=== PATIENT | female | born 1955 | race Caucasian/White ===

== ENCOUNTER 2020-05-12 16:03 | Outpatient (REF) | payer OTHER, SELFPAY | END 2020-05-12 16:04 | disposition home or self-care (01) | LOC: HO.LAB 16:03 | PROVIDERS: Visit Provider Internal Medicine | DX: Z20.828 Contact with and (suspected) exposure to other viral communicable diseases (principal) | CPT/HCPCS: 87635 ==

== ENCOUNTER 2021-09-02 13:31 | Outpatient (REF) | payer OTHER, SELFPAY ==
--- NOTE | ~2021-09-02 | MM_ITS ---
EXAMINATION: MM SCREENING DIGITAL BREAST TOMOSYNTHESIS, BILATERAL CLINICAL INFORMATION: Screening. Asymptomatic. The lifetime risk of breast cancer based on the Tyrer-Cuzick Model is 7%. COMPARISON: Mammography: 04/25/2018, 04/05/2017, 02/14/2016 TECHNIQUE: Digital breast tomosynthesis is performed in both the craniocaudal and mediolateral oblique views along with computer-aided detection (CAD). Synthesized 2D images are generated from the tomosynthesis. FINDINGS: There are scattered areas of fibroglandular density (ACR BI-RADS breast composition Category b). Parenchymal pattern is similar to prior studies. There is no significant breast mass or architectural abnormality or abnormal calcifications. There are coarse calcifications again seen central and outer left breast similar to prior study. The axilla are unremarkable. Left MLO view has dermal lesions overlying the lower inframammary fold approximately 4 x 6 mm in size. This may be best correlated with clinical exam. Navigator to call report. MM/MM tomosynthesis screening BI IMPRESSION: 1. No mammographic evidence of malignancy. 2. Dermal lesion left inframammary fold. ASSESSMENT: BI-RADS 2: Benign RECOMMENDATION: 1. Dermal lesion left inframammary fold may be correlated with clinical exam. 2. Otherwise, routine annual mammography screening. This patient's information was entered into a reminder system with a target due date for their next mammogram.
== END 2021-09-02 13:32 | disposition home or self-care (01) ==
LOC: HO.MAMMO 13:31
PROVIDERS: PCP Family Medicine; Visit Provider Family Medicine
DX: Z12.31 Encounter for screening mammogram for malignant neoplasm of breast (principal)
CPT/HCPCS: 77063; 77067

== ENCOUNTER 2025-01-27 08:09 | Outpatient (REF) | payer MEDICARE, SELFPAY ==
--- OUTSIDE RECORDS SUMMARY | 2024-05-19 05:40 | XMS_ITS ---
Author Organization [facility] Address [address] [place] [address] Care Team Providers Care Promotional Representative Name Role Phone Rolando Flores [phone] Encounters Encounter Location Date Provider Diagnosis [facility] - [facility] [address] [place] [address] 05/19/2024 Rolando Flores Plan Of Treatment No Information Progress Notes * ELI OLIVEROB: 6 (69 yo F)Acc No.[id number]:05/19/2024 Progress Notes Patient: SANCHEZ ARRIOLA Provider: Rocco Flores MD :[id number] A ge:69 Y S ex:Female Date:05/19/2024 Address:[facility] [address] [id number] Subjective: * Chief Complaints: * * Medical History: Objective: * Vitals: Assessment: Plan: * Treatment: * * Electronic signature of James Flores MD on 01/27/2025 at 07:13 AM CDT Sign off status: Pending * Provider: Rocco Flores MD Date: 07/19/2023 Generated for Lindy mayfield/Brandt/eTromanasmwendy on: 0 01/27/2025 07:13 AM CDT
--- OUTSIDE RECORDS SUMMARY | 2025-01-22 08:29 | XMS_ITS | Continuity of Care Document ---
Author Organization [facility] Address [address] [place] [address] Phone Care Team Providers Care Video Production Specialist Name Role Phone No Information Unavailable Unavailable Allergies, Adverse Reactions, Alerts Substance Reaction Status Criticality No Known Allergies Active No Inform ation Medications Medication Instructions Dosage Effective Dates (start - stop) Status Comments fluticasone propionate 50 mcg/actuation nasal spray,suspension inhale 2 spray by intranasal route every day in each nostril 100 MCG - Active Medrol (Buck) 4 mg tablets in a dose pack take by oral route as directed per package instructions 0.00 - Active Voltaren Arthritis Pain 1 % topical gel apply 2 gram by topical route 4 times every day to the affected area(s) 2.00 gram - Active [place] 230 mg-70 mg topical patch Apply to affected area as directed - Active loratadine 10 mg tablet take 1 tablet by oral route every day 10 MG - Active ibuprofen 800 mg tablet take 1 tablet by oral route 3 times every day with food as needed 800 MG - Active Procedures Procedure Date URINALYSIS NONAUTO W/O SCOPE BODY MASS INDEX DOCD [facility] MED/CURRENT MED MERGE Office/outpatient visit,est, mod 2022 Office/outpatient visit,est, low 2022 [facility] MED/CURRENT MED MERGE Office/outpatient visit,est, mod 2022 [facility] MED/CURRENT MED MERGE Preventive checkup, new,65+ yrs 023 Advance Directives Directive Yes / No Effective Date File Name No Information Encounters Encounter Description Practice Location Reason(s) For Visit Diagnoses Date Provider Providers Copied on Encounter [facility], [address] [place] [address], [id number], tel:[phone] No Information 5 No Information [facility], [address] [place] [address], [id number], [place] tel:[phone] [facility] No Information 3 [facility]. [address] [place] [address], [id number], . tel:[phone] Office/outpa tient visit,[facility], [address] [place] [address], [id number], [place] tel:[phone] [facility] Follow Up of hyperlipidemi a (chief complaint)frandy k pain (chief complaint)All ergies (chief complaint) Body mass index [BMI] 28.0-28.9, adultBack painOther muscle spasmMixed hyperlipidemi aOther seasonal allergic rhinitisOther spondylosis, lumbar region 3 [facility]. [address] [place] [address], [id number], . tel:[phone] Office/outpa tient visit,[facility], [address] [place] [address], [id number], [place] tel:[phone] [facility] back pain (chief complaint) Body mass index [BMI] 28.0-28.9, adultBack pain 3 No Information Office/outpa tient visit,[facility], [address] [place] [address], [id number], [place] tel:[phone] [facility] hyperlipidemi a (chief complaint)col onoscopy (chief complaint) Mixed hyperlipidemi aEncounter for screening for Ca of colonOth abn and inconclusive findings on dx imaging of breast 3 [facility]. [address] [place] [address], [id number], [place]. tel:[phone] Preventive checkup, new,65+ yrs [facility], [address] [place] [address], [id number], [place] tel:[phone] [facility] Established care (chief complaint)Her pes (chief complaint)Art hralgias (chief complaint)All ergies (chief complaint)wwc (chief complaint) Allergic rhinitisHerpe sviral infection, unspecifiedEn counter for screening for diabetes mellitusEncou nter for screening for hyperlipidemi aEncounter for routine adult physical exam with abnormal findingEncoun ter for screening for other suspected endocrine disorderEncou nter for screening mammogram for malignant neoplasm of breastArthrit isGlaucomaEle vated blood-pressur e reading w/o diagnosis of HTNOth abn and inconclusive findings on dx imaging of breast 3 [facility]. [address] [place] [address], [id number], [place]. tel:[phone] Family History Family Member Type Diagnosis Age At Onset Mother Problem Hypertension Father Problem Hypertension Payers Payer name Insurance type Covered libertarian ID Authoriza tion(s) No Information Social History Type Description Quantity Date Captured Comments Sex Female Smoking Status No Information Sexual Orientation Straight or heterosexual Gender Identity Female Chief Complaint And Reason For Visit No Information Reason For Referral Reason For Referral No Information Plan Of Treatment Date Type Action Status Goal FIT. Due on due Goal Unhealthy drug u se screening. Due on due Goal Hepatitis C scre ening. Due on due Goal Pneumococcal vac cine. Due on due Goal Breast MRI. Due on due Goal Occult Blood, [place]. Due on due Goal Zoster vaccine ( 1st). Due on due Goal Breast Exam. Due on due Goal CT-Colonography. Due on due Goal DEXA scan. Due on due Goal Depression scree minoo. Due on due Goal Colonoscopy. Due on due Goal Influenza vaccin e. Due on due Goal FIT-DNA. Due on due Goal Lipid panel. Due on due Goal Dental exam. Due on due Goal Sigmoidoscopy. Due on due Goal Tdap. Due on due Goal Lipid Panel w/No n-HDL, Chol/HDL Ratio Calc. Due on due Goal Td vaccine. Due on due Goal FIT. Due on due Goal Influenza vaccin e. Due on due Goal Lipid Panel w/No n-HDL, Chol/HDL Ratio Calc. Due on due Goal Breast Exam. Due on due Goal Colonoscopy. Due on due Goal Dental exam. Due on due Goal Sigmoidoscopy. Due on due Goal Hepatitis C scre ening. Due on due Goal Occult Blood, [place], [place]. Due on due Goal Pneumococcal vac cine. Due on due Goal Tdap. Due on due Goal Depression scree minoo. Due on due Goal DEXA scan. Due on due Goal FIT-DNA. Due on due Goal Td vaccine. Due on due Goal Zoster vaccine ( 1st). Due on due Goal Breast MRI. Due on due Goal Lipid panel. Due on due Goal Unhealthy drug u se screening. Due on due Goal CT-Colonography. Due on due Goal Lifestyle educat ion regarding diet completed Goal CT-Colonography. Due on due Goal Lipid Panel w/No n-HDL, Chol/HDL Ratio Calc. Due on due Goal Td vaccine. Due on due Goal Dental exam. Due on due Goal Colonoscopy. Due on due Goal Unhealthy drug u se screening. Due on due Goal Tdap. Due on due Goal Zoster vaccine ( ). Due on due Goal FIT. Due on due Goal FIT-DNA. Due on due Goal Occult Blood, [place], [place]. Due on due Goal Breast MRI. Due on due Goal Breast Exam. Due on due Goal Pneumococcal vac cine. Due on due Goal Lipid panel. Due on due Goal DEXA scan. Due on due Goal Hepatitis C scre ening. Due on due Goal Sigmoidoscopy. Due on due Goal Influenza vaccin e. Due on due Goal Depression scree minoo. Due on due Goal Depression scree minoo. Due on due Goal Dental exam. Due on due Goal Breast Exam. Due on due Goal Unhealthy drug u se screening. Due on due Goal Occult Blood, [place], [place]. Due on due Goal Sigmoidoscopy. Due on due Goal Breast MRI. Due on due Goal Influenza vaccin e. Due on due Goal Hepatitis C scre ening. Due on due Goal Lipid panel. Due on due Goal Pneumococcal vac cine. Due on due Goal Lipid Panel w/No n-HDL, Chol/HDL Ratio Calc. Due on due Goal CT-Colonography. Due on due Goal Zoster vaccine ( 1st). Due on due Goal FIT. Due on due Goal Td vaccine. Due on due Goal Colonoscopy. Due on due Goal DEXA scan. Due on due Goal Tdap. Due on due Goal FIT-DNA. Due on due Referral Ordered: Gastroenterology (related to Encounter for screening for Ca of colon) ordered Referral Ordered: Referrals: Gastroenterology. Evaluate and treat ordered Referral Ordered: Referrals: Ophthalmology. Evaluate and treat Appointment date/timeframe: 01/10/2023 ordered Future Order: Radiology Order MG Screening Mammogram CAD BILATERAL ([id number]), Sent on: Sent Future Order: Radiology Order MG Diagnostic Mammogram CAD BILATERAL ([id number]), Sent on: Sent Future Order: Radiology Order MG Diagnostic Mammogram CAD BILATERAL ([id number]), Collected on: , Sent on: Sent Nutrition Recommendation Nutrition therap y completed History Of Present Illness Encounter Date Complaint History Of Prese nt Illness Follow Up of hyperlipidemia Risk factors include age over 50. Pertinent negatives include chest pain, claudication, constant hunger, constipation, diaphoresis, diarrhea, dizziness, dysesthesias, dyspnea, excessive thirst, foot ulcer, frequent infections, heartburn, hematuria, hypoglycemic episodes, impotence/erectile dysfunction, increased fatigue, joint pain, myalgia, nausea, nocturia, palpitations, polydipsia, polyuria (Endocrine), rash, slow healing, transient weakness, vision loss, vomiting, weight gain, weight loss. back pain Severity level i s moderate. The problem is fluctuating. It occurs persistently. Location of pain is lower back. Pain is radiated to the back. The client describes the pain as an ache, dull, sharp and stabbing. Context: no injury. Symptoms are aggravated by ascending stairs, bending, descending stairs, extension, flexion, lying/rest, running, standing, twisting and walking.The client denies relieving factors. Allergies The client prese nts with earache, itchy ears, itchy eyes, post nasal drainage, sneezing and watery eyes. Symptoms are constant, mild and unchanged. The symptoms are felt to be related to season change. The allergic symptoms are worsened by allergens and season change. Denies relieving factors. The client is also experiencing ear pain, headache, nasal congestion and nasal drainage. The client denies chest tightness, coryza, cough, dizziness, globus sensation, hoarseness, nausea, pharyngitis, post nasal drainage, reddened eyes, reflux, sinus infections, sinus pain, sneezing, tearing and urticaria. back pain Onset: 2 days ag o. Severity level is 7. The problem is worsening. It occurs persistently. Location of pain is lower back. Pain is radiated to the back. The client describes the pain as an ache and localized. Context: bending over, no injury, pulling and twisting movement. Symptoms are aggravated by bending. Symptoms are relieved by pain meds/drugs. colonoscopy dueno bowel vizcaino gesno fam hx of colon cancer hyperlipidemia Risk factors inc lude age over 50. Pertinent negatives include chest pain, claudication, constant hunger, constipation, diaphoresis, diarrhea, dizziness, dysesthesias, dyspnea, excessive thirst, foot ulcer, frequent infections, heartburn, hematuria, hypoglycemic episodes, impotence/erectile dysfunction, increased fatigue, joint pain, myalgia, nausea, nocturia, palpitations, polydipsia, polyuria (Endocrine), rash, slow healing, transient weakness, vision loss, vomiting, weight gain, weight loss. Additional information: not due for labs yet - has not started any lifestyle changes or added fish oil to diet. [facility] Herpes has history of h erpes. Currently on acyclovir taking it as needed. last flare up was 3 yr ago. Established care Current health status: good healthy. Medical history: herpes, Arthritis , GERD, migraine, Carpal tunnel - Lt wrist, glaucomaPreventive : Last PAP 3 yr ago. Mammogram abnormal in 2021-need repeat mammogram. colonoscopy - normal-does not remember whenSurgery ; Hysterectomy 20yr ago. has ovaries Lifestyle: healthy - nonsmokerAllergies : seasonalSees dentist routinelyFamily medical history: reviewPrescription medications: omeprazole, acyclovir, loratidineOTC medications: ExedrinNutritional supplements: noneimmunization : shingles and pfizer for covidConcerns: none Allergies The client prese nts with sneezing and watery eyes. Symptoms are constant, mild and improving. The symptoms are felt to be related to season change. The allergic symptoms are worsened by season change. The client is also experiencing post nasal drainage. The client denies cough, ear pain, headache, nasal drainage and nausea. Arthralgias Severity level i s mild. It occurs constantly and is fluctuating. Location: bilateral hand. The pain is aching. Context: there is no injury. The pain is relieved by OTC medicines: ibuprofen and rest. Associated symptoms include joint tenderness. Pertinent negatives include bruising, crepitus, decreased mobility, difficulty initiating sleep, joint instability, limping, locking, nocturnal awakening, nocturnal pain, numbness, popping, spasms, swelling, tingling in the arms, tingling in the legs and weakness. Functional Status Date Functional Assessmen t No Information Instructions Date Instruction Additional Infor steve referral to ortho. Related to Ot her spondylosis, lumbar region 1. Discussed muscle spasm etiology and treatment plan.2. Patient to apply warm moist pad to affected area TID prn muscle spasms.3. Take muscle relaxants as directed.4. Recommend gentle stretching exercises, warm oil massage to affected area, lumbar support.5. F/u in 1 week or sooner if symptoms worsen or do not improve. Related to Other muscle spasm 1. Discussed seasona l allergies etiology and treatment plan.2. Patient to take allergy medication as directed.3. Discussed lessoning the exposure to the allergens that cause symptoms. 4. Refills addressed.5. RTC if symptoms worsen or do not improve. Related to Other seasonal allergic rhinitis 1. Discussed hyperli pidemia etiology and treatment plan.2. Patient to continue with current treatment plan.3. No medication changes - refills sent to pharmacy.4. Recommended low carbohydrate, high fiber, low saturated fat diet. 5. Recommended optimal lifestyle habits that include exercise daily at least 150 mins weekly and weight loss.6. Labs ordered - pending results.7. Handout offered to patient. Patient verbalized understanding. 8. F/u in 3 months. Related to Mixed hyperlipidemia 1. Discussed back pa in possible causes and treatment plan.2. Patient to apply warm moist heat to affected area on back, warm oil massage to back area, gentle stretching exercises.3. Recommend lumbar support and limited activities that may exacerbate pain.4. Patient to take medication as directed.5. Patient verbalized understanding.6. F/u in 1 week or sooner if symptoms worsen or do not improve. Related to Back pain Safeguard your back while lifting: Bend at your knees, not at your lower back. Pivot your feet and hips, rather than twisting your lower back. Hold the object close to your chest while straightening your spineSpine sparing principles: It is advisable to stand upright for a few minutes and allow the spinal tissues to recover and re-shape after prolonged stooping or bending.Protect your disc after waking: The pressure within your discs rises up to 240% when you sleep at night (for a minimum of 7 hours).6 At this time, your discs are fully hydrated and are typically at a higher risk of herniation when subject to bending or lifting forces. Maintaining a straight back for an hour or two after waking allows your discs to regain their normal pressure and withstand loads more effectively. Related to Back pain Giving encouragement to exercise Related to Body mass index [BMI] 28.0-28.9, adult Lifestyle education regarding di et Related to Body mass index [BMI] 28.0-28.9, adult Discussed with betsey fink Colonoscopy noraWifadi refer to gastro for to schedule colonoscopy. Related to Encounter for screening for Ca of colon repeat mammogram in 2022 - Related to Oth abn and inconclusive findings on dx imaging of breast 1. Discussed hyperli pidemia etiology and treatment plan.2. Patient to continue with current treatment plan.3. No medication changes - refills sent to pharmacy.4. Recommended low carbohydrate, high fiber, low saturated fat diet. 5. Recommended optimal lifestyle habits that include exercise daily at least 150 mins weekly and weight loss.6. Labs due next visit. 7. Handout offered to patient. Patient verbalized understanding. 8. F/u in 3 months. Related to Mixed hyperlipidemia mammogram ordered Related to Enc ounter for screening mammogram for malignant neoplasm of breast labs pending Related to Encou nter for screening for other suspected endocrine disorder labs pending Related to Encou nter for screening for hyperlipidemia referral needed. Related to Glau coma need medical records. Related to Oth abn and inconclusive findings on dx imaging of breast 1. 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 Discussed with patient Herpes type 1 signs and symptoms: cold sores with tingling, itching, blisters, oozing and crusting.2. Discussed cause: viral strain of HSV. 3. Discussed contagious factors/risk factors, complications, prevention. 4. Discussed treatment plan to help speed up healing and prophylactic treatment.5. Reassurance given to patient.6. No treatment needed at this time.7. F/u prn. Related to Herpesviral infection, unspecified labs pending Related to Encou nter for screening for diabetes mellitus 1. Discussed etiolog y and treatment plan.2. Discussed how the symptoms can be usually managed, although the damage to joints can't be reversed.3. Recommend staying active, maintaining a healthy weight and some treatments to slow progression to help improve pain and joint function. 4. Recommend medications for pain (Tylenol, NSAIDS), Cymbalta, Physical Therapy.5. Discussed with patient that if conservative treatments don't help, may want to consider, cortisone injections, lubrication injections, joint replacement, realigning bones...etc. 6. Discussed alternative therapies: juany chi/yoga, heat/cold, capsaicin topical, braces, assistive devices, TENS units.7. Discussed complementary treatments: acupuncture, glucosamine/chondroitin, omega-3 fatty acids, avocado-soybean unsaponifiables. 8. Patient to f/u in 3 months. Related to Arthritis 1. Discussed with johnna rodriguez preventive - screenings/counseling.2. Reviewed immunizations: Recommend Influenza vaccine.3. Depression screen: negative.4. Blood pressure: normal - today high in office. 5. Smoking/Tobacco Assessment: negative. 6. BMI: discussed.7. STI risk discussed. 8. Mammogram recommended ever 1-2 years. DUE: Related to Encounter for routine adult physical exam with abnormal finding 1. Discussed HTN rody ology, normal parameters. 2. Discussed elevated BP causes which include PAIN, anxiety stress, caffeine consumption (BC powder)...etc.3. Handout given of BP Log. Patient to take BP daily, same time, same arm x 2 weeks, bring to next appt.4. Recommend low sodium diet.5. Labs ordered today - pending results6. Discussed question and concerns regarding BP. 7. F/u in 3 months.8. RTC if symptoms worsen Related to Elevated blood-pressure reading w/o diagnosis of HTN 1. Discussed seasona l allergies etiology and treatment plan.2. Patient to continue with current OTC allergy medication daily - claririn 5mg daily3. Recommend nasal saline rinses daily.4. Recommend avoiding allergens as best as possible. 5. RTC if symptoms worsen or do not improve.6. F/u prn Related to Allergic rhinitis Assessments Type Assessment Date No Information Patient Care Teams Name Effective Dates (start - stop) Status Members No Information
--- NOTE | ~2025-01-27 | XR_ITS ---
EXAMINATION: XR KNEE, LEFT CLINICAL INFORMATION: pain COMPARISON: None available. TECHNIQUE: Four views of the left knee. FINDINGS: Joint spaces are preserved. There is no joint effusion. There is a small osteophyte involving the lateral patella margin. XR/XR knee LT 4V IMPRESSION: Small patellar osteophyte is consistent with very minimal osteoarthritis. Electronically signed by: Matty Zacarias MD 01/27/2025 11:43 AM EDT
--- OUTSIDE RECORDS SUMMARY | 2025-01-27 08:14 | XMS_ITS | Encounter Summary ---
Author Organization [facility] Address [address] [place] [address] Care Team Providers Care Pressurised Container Filler Name Role Phone Susan Wayne MD Primary Care Provider [phone] Susan Wayne MD Primary Care Provider [phone] Encounter Details Date Type Department Care Team (Late Contact Info) Description 08/22/2023 Orders Only [facility] [address] [place] [address] [phone] Susan Wayne MD [address] [place] [address] [phone] Social History Tobacco Use Types Packs/Day Years Used Date Smoking Tobacco: Never Smokeless Tobacco: Never Tobacco Cessation:Counseling Given: Not Answered Alcohol Use Standard Drinks/Week Comments Never 0 (1 standard drink = 0.6 oz pur e alcohol) Comments Unknown Sex and Gender Information Value Date Recorded Sex Assigned at Female 05/15/2022 10:14 AM EDT Legal Sex Female 10:14 AM EDT Gender Identity Female 05/15/2022 10:14 AM EDT Sexual Orientation Choose not to disclose 2021 10:14 AM EDT documented as of this encounter Plan of Treatment Upcoming Encounters Date Type Department Care Team (Late Contact Info) Description 04/15/2025 10:30 AM EDT Office Visit [facility] [address] [place] [address] [phone] Susan Wayne MD [address] [place] [address] [phone] documented as of this encounter Visit Diagnoses Not on filedocumented in this encounter Care Teams Pressurised Container Filler Relationship Specialty Start Date End Date Susan Wayne MD [address] [place] [id number] PCP - General Family Medicine 07/16/18 04/13/24 Susan Wayne MD [address] [place] [id number] PCP - General Family Medicine 01/26/25 documented as of this encounter
--- OUTSIDE RECORDS SUMMARY | 2025-01-27 08:14 | XMS_ITS | Patient Health Record ---
Author Organization [facility] Address [address] [place] [address] Care Team Providers Care Field Supervisor Name Role Phone Susan Wayne MD Primary Care Provider Sondra Corky Meier Jr Unavailable Reason For Referral No Information Medications Medication SIG (Take, Route, Fr equency, Duration) Notes Start Date End Date Status MoviPrep 100 GM as directed before c olonoscopy Orally for 1 dose 09/20/2012 07/16/2024 Active Calcium Active Problems Problem Type SNOMED Code ICD Code Onset Dates Problem Status W/U Status Risk Notes Problem Irritable bowel syndrome (57643558) Irritable bowel syndrome (564.1) Active confirmed Problem Colon cancer screening (959786126) Colon cancer screening (V76.51) Active confirmed Plan Of Treatment Future Test Test Name Order Date COLONOSCOPY 09/20/2012 Insurance Providers Payer Name Payer Address Payer Phone Subscriber Number Group Number Insured Name Patient Relationship to Insured Coverage Start Date Coverage End Date [facility] [address] [place] [phone] [id number] SANCHEZ OLIVER Self - patient is the insured Medical (General) History Medical History History ICD Code Denies [place],DM,CVA,Lung disease,renal dise ase glaucoma varicose veins in lower extremity allergic rhinitis eczematous dermatitis Surgical History Surgery Date(Month/Year) hysterectomy ? gallbladder hand surgery
[2025-01-27 11:15] LABS: MANUAL DIFF FLAG NO
[2025-01-27 11:25] LABS: Hematocrit 42.6 % (37.0-47.0); Hemoglobin 14.0 g/dl (12.0-16.0); Imm Gran Abs Auto 0.04 X10*3/uL (0.00-0.03); Imm Gran Pct Auto 0.4 % (0.0-0.4); Lymphocytes Absolute Auto 4.3 X10*3/uL (1.2-4.9); Mean Corpuscular HGB Conc 32.9 g/dl (31.0-35.0); Mean Corpuscular Hemoglobin 29.5 pg (27.0-33.0); Mean Corpuscular Volume 89.7 fL (80.0-98.0); NRBC Abs Auto 0.000 X10*3/uL (0.0-0.012); NRBC Pct Auto 0.0 /100WBC (0.0-0.2); Platelet Count 283 X10*3/uL (160-400); Red Blood Count 4.75 X10*6/uL (4.20-5.50); White Blood Count 10.0 X10*3/uL (4.8-10.8)
[2025-01-27 12:16] LABS: Alanine Aminotransferase 46 U/L (0-31); Albumin Level 4.5 g/dL (3.5-5.0); Alkaline Phosphatase 71 U/L (39-117); Anion Gap 13 (12-20); Aspartate Amino Transferase 31 U/L (5-31); Blood Urea Nitrogen 21 mg/dL (9-16); Calcium 9.4 mg/dL (8.4-10.2); Carbon Dioxide 29 mmol/L (22-29); Chloride 108 mmol/L (96-108); Cholesterol 202 mg/dL (<200); Estimated Glomerular Filt Rate > 60; HDL Cholesterol 47 mg/dL (>40); Potassium 4.8 mmol/L (3.3-5.1); Sodium 145 mmol/L (135-145); Total Protein 6.9 g/dL (6.5-8.0); Triglycerides 147 mg/dL (<150)
== END 2025-01-27 08:10 | disposition home or self-care (01) ==
LOC: HO.HHCL 08:09
PROVIDERS: PCP Family Medicine; Visit Provider Family Medicine
DX: M25.762 Osteophyte, left knee (principal); E78.2 Mixed hyperlipidemia; Z13.1 Encounter for screening for diabetes mellitus; E55.9 Vitamin D deficiency, unspecified; G89.29 Other chronic pain
CPT/HCPCS: 36415; 73564; 80048; 80061; 80076; 82306; 85025

== ENCOUNTER → 2025-01-27 10:44 | Outpatient (BNV) | payer MEDICARE, SELFPAY | PROVIDERS: PCP Family Medicine; Visit Provider Radiology Diagnostic Radiology | DX: M17.12 Unilateral primary osteoarthritis, left knee (principal) | CPT/HCPCS: 73564 ==

== ENCOUNTER 2025-03-11 16:07 | Outpatient (RCR) | payer MEDICARE, SELFPAY | END 2025-03-31 10:25 | disposition home or self-care (01) | LOC: HO.PT 16:07 | PROVIDERS: PCP Family Medicine; Visit Provider Internal Medicine | DX: M17.12 Unilateral primary osteoarthritis, left knee (principal) | CPT/HCPCS: 97110; 97161; 97530 ==

== ENCOUNTER 2025-04-09 08:52 | Outpatient (REF) | payer MEDICARE, SELFPAY ==
--- OUTSIDE RECORDS SUMMARY | 2025-01-22 08:29 | XMS_ITS | Continuity of Care Document ---
Author Organization [facility] Address [address] [place] [address] Phone Care Team Providers Care Pipe Line Gauger Name Role Phone No Information Unavailable Unavailable [...] the affected area(s) 2.00 gram - Active [place] 230 mg-70 mg topical patch Apply to [...] Diagnoses Date Provider Providers Copied on Encounter [facility], [address] [place] [address], [id number], tel:[phone] No Information 5 No Information [facility], [address] [place] [address], [id number], [place] tel:[phone] [facility] No Information 3 [facility]. [address] [place] [address], [id number], . tel:[phone] Office/outpa tient visit,[facility], [address] [place] [address], [id number], [place] tel:[phone] [facility] Follow Up of hyperlipidemi a (chief complaint)frandy k pain (chief complaint)All ergies (chief complaint) Body mass index [BMI] 28.0-28.9, adultBack painOther muscle spasmMixed hyperlipidemi aOther seasonal allergic rhinitisOther spondylosis, lumbar region 3 [facility]. [address] [place] [address], [id number], . tel:[phone] Office/outpa tient visit,[facility], [address] [place] [address], [id number], [place] tel:[phone] [facility] back pain (chief complaint) Body mass index [BMI] 28.0-28.9, adultBack pain 3 No Information Office/outpa tient visit,[facility], [address] [place] [address], [id number], [place] tel:[phone] [facility] hyperlipidemi a (chief complaint)col onoscopy (chief complaint) Mixed hyperlipidemi aEncounter for screening for Ca of colonOth abn and inconclusive findings on dx imaging of breast 3 [facility]. [address] [place] [address], [id number], [place]. tel:[phone] Preventive checkup, new,65+ yrs [facility], [address] [place] [address], [id number], [place] tel:[phone] [facility] Established care (chief complaint)Her pes (chief complaint)Art [...] findings on dx imaging of breast 3 [facility]. [address] [place] [address], [id number], [place]. tel:[phone] Family History Family Member Type Diagnosis Age At Onset Mother Problem Hypertension Father Problem Hypertension Payers Payer name Insurance type Covered constitution party ID Authoriza tion(s) No Information Social History Type Description Quantity Date Captured Comments Sex Female Smoking Status No Information Sexual Orientation Straight or heterosexual Gender Identity Female Chief Complaint And Reason For Visit No Information Reason For Referral Reason For Referral No Information Plan Of Treatment Date Type Action Status Goal DEXA scan. Due on [address]-Colonography. Due on due Goal Breast Exam. Due on 023 due Goal Depression scree minoo. Due on due Goal Colonoscopy. Due on 023 due Goal Influenza vaccin e. Due on due Goal FIT-DNA. Due on due Goal Lipid panel. Due on due Goal Dental exam. Due on due Goal Sigmoidoscopy. Due on due Goal Tdap. Due on due Goal Lipid Panel w/No n-HDL, Chol/HDL Ratio Calc. Due on due Goal Td vaccine. Due on due Goal FIT. Due on due Goal Unhealthy drug u se screening. Due on due Goal Hepatitis C scre ening. Due on due Goal Pneumococcal vac cine. Due on due Goal Breast MRI. Due on due Goal Occult Blood, [place], [place]. Due on due Goal Zoster vaccine ( ). Due on due Goal Lipid Panel w/No [...] due Goal CT-Colonography. Due on due Goal FIT. Due on due Goal Influenza vaccin e. Due on due Goal Lifestyle educat ion regarding diet completed Goal Depression scree minoo. Due on due Goal Influenza vaccin e. Due on due Goal Dental exam. Due on due Goal FIT. Due on due Goal Unhealthy drug u se screening. Due on due Goal Colonoscopy. Due on due Goal Breast MRI. Due on due Goal Hepatitis C scre ening. Due on due Goal Occult Blood, [place], [place]. Due on due Goal Tdap. Due on due Goal Lipid Panel w/No n-HDL, Chol/HDL Ratio Calc. Due on due Goal CT-Colonography. Due on due Goal DEXA scan. Due on due Goal Zoster vaccine ( 1st). Due on due Goal Pneumococcal vac cine. Due on due Goal Td vaccine. Due on due Goal Sigmoidoscopy. Due on due Goal Breast Exam. Due on due Goal Lipid panel. Due on due Goal FIT-DNA. Due on due Goal Dental exam. Due [...] due Goal FIT-DNA. Due on due Goal Depression parul hennessy. Due on due Referral Ordered: Gastroenterology (related to Encounter for screening for Ca of colon) ordered Referral Ordered: Referrals: Gastroenterology. Evaluate and treat ordered Referral Ordered: Referrals: Ophthalmology. Evaluate and treat Appointment date/timeframe: 01/10/2023 ordered Future Order: Radiology Order MG Screening Mammogram CAD BILATERAL ([id number]), Sent on: Sent Future Order: Radiology Order MG Diagnostic Mammogram CAD BILATERAL ([id number]), Sent on: Sent Future Order: Radiology Order MG Diagnostic Mammogram CAD BILATERAL ([id number]), Collected on: , Sent on: Sent Nutrition [...] changes or added fish oil to diet. [facility] Herpes has history of h erpes. [...]
--- OUTSIDE RECORDS SUMMARY | 2025-04-09 09:31 | XMS_ITS | Patient Health Record ---
Author Organization [facility] Address [address] [place] [address] Care Team Providers Care Support Manager Name Role Phone Susan Wayne MD Primary [...] Status Risk Notes Problem Irritable bowel syndrome (36756288) Irritable bowel syndrome (564.1) Active confirmed Problem Colon cancer screening (412073816) Colon cancer screening (V76.51) Active confirmed Plan Of Treatment Future Test Test Name Order Date COLONOSCOPY 09/20/2012 Insurance Providers Payer Name Payer Address Payer Phone Subscriber Number Group Number Insured Name Patient Relationship to Insured Coverage Start Date Coverage End Date [facility] [address] [place] [phone] [id number] SANCHEZ OLIVER Self - patient is the insured Medical (General) History Medical History History ICD Code Denies [place],DM,CVA,Lung disease,renal dise ase glaucoma varicose veins in lower extremity allergic rhinitis eczematous dermatitis Surgical History Surgery Date(Month/Year) hysterectomy ? gallbladder hand surgery
--- OUTSIDE RECORDS SUMMARY | 2025-04-09 09:31 | XMS_ITS | Patient Health Record ---
Author Organization [facility] Address [address] [place] [address] Care Team Providers Care Automotive Sales Specialist Name Role Phone Rolando Flores [phone] Allergies No Known Allergies Reason For Referral No Information Medications Medication SIG (Take, Route, Frequency, Duration) Notes Start Date End Date Status Acyclovir 800 MG Tablet 1 tablet Orally three times per day; Duration: 10 days 02/06/2024 Active Triamcinolone Acetonide 0.5 % Cream 1 application Externally Twice a day; Duration: 02/06/2024 Active Amoxicillin-Pot Clavulanate 875-125 MG Tablet 1 tablet Orally every 12 hrs; Duration: 02/13/2024 Active Social History Tobacco Use: Social History Observation Description Date Details (start date - stop date) Never Smoker NA - NA Social History Tobacco Use: Social Info Question Answer Notes Tobacco Control (Standard) Tobacco use: Nonsmoker Section Notes: Non smoker ETOH no Non smoker ETOH no Non smoker ETOH no Non smoker ETOH no Non smoker ETOH no Non smoker ETOH no Problems Problem Type SNOMED Code ICD Code Onset Dates Problem Status W/U Status Risk Notes Problem Prediabetes (826244350) Prediabetes (R73.03) Active confirmed Problem Lumbar radiculopathy (827465850) Lumbar radiculopathy (M54.16) Active confirmed Problem Serum ferritin high (059587052) Elevated ferritin (R79.89) Active confirmed Problem Sinusitis (65179846) Sinusitis (J32.9) Active confirmed Problem Arthralgia (93576803) Arthralgia (M25.50) Active confirmed Problem Herpes genitalis (76986843) Herpes genitalis (A60.00) Active confirmed Plan Of Treatment Pending Test Test Name Order Date MG Diagnostic Mammogram BILATERAL (1950) 07/23/2023 US Breast Complete BILATERAL (1542) 02/2024 Future Test Test Name Order Date Hemoglobin [id number] 02/13/2024 Insulin-[id number] 02/13/2024 Ferritin, Serum-[id number] 02/13/2024 Lipid [id number] 02/13/2024 CMP14+eGFR ([id number]) 02/13/2024 CBC 02/13/2024 Insurance Providers Payer Name Payer Address Payer Phone Subscriber Number Group Number Insured Name Patient Relationship to Insured Coverage Start Date Coverage End Date [facility] AD[facility] (PPO) [address] [address] [place] [address] [id number] SANCHEZ OLIVER Self - patient is the insured Medications Administered Medication Instructions Date of Administration Dosage Notes DEPO-Medrol 05/28/2023 40 mg Ketorolac Tromethamine 05/28/2023 30 mg Medical (General) History Medical History History ICD Code arthritis herpes hemorrhoids pre diabetes Surgical History Surgery Date(Month/Year) Hand surgery cholecystectomy hysterectomy
--- OUTSIDE RECORDS SUMMARY | 2025-04-09 09:31 | XMS_ITS | Encounter Summary ---
Author Organization [facility] Address [address] [place] [address] [address] [place] [address] Care Team Providers Care Chute Boss Name Role Phone Susan Wayne MD Primary Care Provider [phone] Encounter Details Date Type Department Care Team (Latest Contact Info) Description 04/08/2025 Travel Social History Tobacco Use Types Packs/Day Years Used Date Smoking Tobacco: Never Smokeless Tobacco: Never Alcohol Use Standard Drinks/Week Comments Never 0 [...] Encounters Date Type Department Care Team (Late st Contact Info) Description 04/15/2025 10:30 AM EDT Office Visit [facility] [address] [place] [address] Susan Wayne MD [address] [place] [address] documented as of this encounter Visit Diagnoses Not on filedocumented in this encounter Care Teams Chute Boss Relationship Specialty Start Date End Date Susan Wayne MD [address] [place] [address] PCP - General Family Medicine 01/26/25 documented as of this encounter
--- OUTSIDE RECORDS SUMMARY | 2025-04-09 09:31 | XMS_ITS | Encounter Summary ---
Author Organization [employer] Address [address] [place] [address] [address] [place] [address] Care Team Providers Care Insecticide Sprayer Name Role Phone Susan Wayne MD Primary Care Provider +1- [phone] Reason for Visit * Reason Comments Pre-visit Planning (Unable to reach for PVP screening, LVM) to be completed in office Encounter Details Date Type Department Care Team (Late st Contact Info) Description 04/08/2025 Patient Outreach [facility] [address] [place] [address] Susan Wayne MD [address] [place] [address] Pre-visit Planning ((Unable to reach for PVP screening, LVM) to be completed in office ) Social History Tobacco Use Types Packs/Day Years [...] AM EDT documented as of this encounter Progress Notes * Nova Goodwin - 04/08/2025 9:23 AM EDT CC Nova. Placed outbound call to patient to complete pre-visit planning. No answer at this time. Patient name and were not confirmed. CC left voicemail requesting return call. Direct contact information provided. documented in this encounter Plan of Treatment Upcoming Encounters Date Type Department Care Team ([facility] st Contact Info) Description 04/15/2025 10:30 AM EDT Office Visit [facility] [address] [place] [address] Susan Wayne MD [address] [place] [address] documented as of this encounter Visit Diagnoses Not on filedocumented in this encounter Care Teams Insecticide Sprayer Relationship Specialty Start Date End Date Susan Wayne MD [address] [place] [address] [phone] PCP - General Family Medicine 01/26/25 documented as of this encounter
--- OUTSIDE RECORDS SUMMARY | 2025-04-09 09:31 | XMS_ITS | Encounter Summary ---
Author Organization [facility] Address [address] [place] [address] [address] [place] [address] Care Team Providers Care General Claims Agent Name Role Phone Susan Wayne MD Primary Care Provider +1- [phone] Encounter Details Date Type Department Care Team (Latest Contact Info) Description 01/26/2025 Orders Only [facility] [address] [place] [address] [phone] Susan Wayne MD [address] [place] [address] [phone] Mixed hypercholesterolemia and hypertriglyceridemia (Primary Dx); Gastroesophageal reflux disease, unspecified whether esophagitis present; Vitamin D deficiency; Screening for diabetes mellitus Social History Tobacco Use Types Packs/Day Years [...] Description 04/15/2025 10:30 AM EDT Office Visit [facility] [address] [place] [address] [phone] Susan Wayne MD [address] [place] [address] [phone] documented as of this encounter Procedures Procedure Name Priority Date/Time Associated Diagnosis Comments VITAMIN D,25-OH,TOTAL,IA Routine 01/27/2025 8:14 AM EDT Vitamin D deficiency CBC WITH AUTO DIFFERENTIAL Routine 01/27/2025 8:14 AM EDT Screening for diabetes mellitus HEPATIC FUNCTION PANEL Routine 01/27/2025 8:14 AM EDT Mixed hypercholesterolemia and hypertriglyceridemia LIPID PANEL, STANDARD Routine 01/27/2025 8:14 AM EDT Mixed hypercholesterolemia and hypertriglyceridemia BASIC METABOLIC PANEL Routine 01/27/2025 8:14 AM EDT Screening for diabetes mellitus documented in this encounter Results * Vitamin D, 25-Hydroxy, Total, Immunoassay (01/27/2025 8:14 AM EDT) [facility] Vitamin D 25-OH Total 92.2 >30 ng/mL [facility] Comment: Health Based Reference Values*< 20 ng/mL Sohosqail53-07 ng/mL Insufficient> 30 ng/mL Sufficient*Devon FIGUEROA. N Engl J Med. 2007;357:266-280There is no well-established upper level of normal vitamin Dlevels. Some laboratories use 50 ng/mL as an upper limit ofnormal. However, toxicity is patient-dependent and may occurat any level. Careful correlation with the patient'spresentation is necessary and, if there is concern forvitamin D toxicity, treatment should be consideredirrespective of the serum level.Care must be taken in interpreting Vitamin D results fromdifferent laboratories and methodologies. Published datademonstrated that results from patients undergoinghemodialysis may show a negative bias when tested withvarious automated 25-OH vitamin D assays when compared toLC-MS/MS.When testing samples from patients whose predominant form ofVitamin D is Vitamin D2, such as patients receiving VitaminD2 supplementation, results that are subtherapeutic shouldbe confirmed with another method such as LC-MS/MS. Blood 01/27/2025 8:14 AM EDT 01/27/2025 11:06 AM EDT us Susan Wayne MD LAB BLOOD ORDERABLES Final Result [facility] [address] [place] [address] [phone] * (ABNORMAL) CBC auto differential (01/27/2025 8:14 AM EDT) White Blood Count 10.0 4.8 - 10.8 X10*3/uL [facility] Red Blood Count 4.75 4.20 - 5.50 X10*6/uL [facility] Hemoglobin 14.0 12.0 - 16.0 g/dl [facility] Hematocrit 42.6 37.0 - 47.0 % [facility] Mean Corpuscular Volume 89.7 80.0 - 98.0 fL [facility] Mean Corpuscular Hemoglobin 29.5 27.0 - 33.0 pg [facility] Mean Corpuscular HGB Conc 32.9 31.0 - 35.0 g/dl [facility] Red Cell Distribution Width 12.2 11.0 - 16.0 % [facility] Platelet Count 283 160 - 400 X10*3/uL [facility] Mean Platelet Volume 10.3 9.4 - 12.3 fL [facility] Neutrophils Percent Auto 46.1 45 - 73 % [facility] Imm Gran Pct Auto 0.4 0.0 - 0.4 % [facility] Lymphocytes Percent Auto 42.8(H) 20 - 40 % [facility] Monocytes Percent Auto 6.9 2 - 11 % [facility] Eosinophils Percent Auto 3.1 0 - 4 % [facility] Basophils Percent Auto 0.7 0 - 2 % [facility] NRBC Pct Auto 0.0 0.0 - 0.2 /100WBC [facility] Neutrophils Absolute Auto 4.6 2.0 - 8.3 x10*3/uL [facility] Imm Gran Abs Auto 0.04(H) 0.00 - 0.03 X10*3/uL [facility] Lymphocytes Absolute Auto 4.3 1.2 - 4.9 X10*3/uL [facility] Monocytes Absolute Auto 0.7 0.1 - 1.2 X10*3/uL [facility] Eosinophils Absolute Auto 0.3 0.0 - 0.4 X10*3/uL [facility] Basophils Absolute Auto 0.1 0.0 - 0.2 X10*3/uL [facility] NRBC Abs Auto 0.000 0.0 - 0.012 X10*3/uL [facility] Blood Venous blood specimen / Unknown 01/27/2025 8:14 AM EDT 01/27/2025 11:06 AM EDT us Susan Wayne MD LAB BLOOD ORDERABLES Final Result [facility] [address] [place] [phone] * (ABNORMAL) Basic Metabolic Panel (01/27/2025 8:14 AM EDT) Sodium 145 135 - 145 mmol/L [facility] Potassium 4.8 3.3 - 5.1 mmol/L [facility] Chloride 108 96 - 108 mmol/L [facility] Carbon Dioxide 29 22 - 29 mmol/L [facility] Anion Gap 13 12 - 20 [facility] Urea Nitrogen (BUN) 21(H) 9 - 16 mg/dL [facility] Creatinine, Serum 0.75 0.5 - 1.4 mg/dL [facility] Estimated Glomerular Filt Rate >60 [facility] Comment:Chronic Kidney Disea se: Estimated GFR < 60 mL/min/1.19m0[place] Kidney Disease: Estimated GFR < 15 mL/min/1.73m2 Glucose 120(H) 60 - 115 mg/dL [facility] Calcium 9.4 8.4 - 10.2 mg/dL [facility] Blood Venous blood specimen / Unknown 01/27/2025 8:14 AM EDT 01/27/2025 11:06 AM EDT Susan Wayne MD LAB BLOOD ORDERABLES Final Result Performing Organization Address [facility] Co de Phone Number [facility] [address] [place] [address] [phone] * (ABNORMAL) Lipid Panel, Standard (01/27/2025 8:14 AM EDT) Triglycerides 147 <150 mg/dL [facility] Comment:Desirable Triglyceri de: less than 150 mg/dLBorderline High Triglyceride 150-199 mg/dLHigh Triglyceride: 200-499 mg/dLVery High Triglyceride: greater than or equal to 5OO mg/dL Cholesterol 202(H) <200 mg/dL [facility] Comment:Desirable Cholestero l: less than 200 mg/dLBorderline High Cholesterol: 200-239 mg/dLHigh Cholesterol: greater than 239 mg/dL LDL Cholesterol Calculated 126(H) <100 mg/dL [facility] Comment:Desirable LDL: less than 100 mg/dLNear Optimal/Above Optimal LDL: 110- 129 mg/dLBorderline High LDL: 130-159 mg/dLHigh LDL: 160-189 mg/dLVery High LDL: greater than or equal to 190 mg/dL HDL Cholesterol 47 >40 mg/dL [facility] Comment:Desirable HDL: great er than 40 mg/dL Note: This HDL assay may give artificially low results in patients with liver disease. Blood Venous blood specimen / Unknown 01/27/2025 8:14 AM EDT 01/27/2025 11:06 AM EDT Susan Wayne MD LAB BLOOD ORDERABLES Final Result Performing Organization Address [facility]/ZIP Co de Phone Number [facility] [address] [place] [address] [phone] * (ABNORMAL) Hepatic Function Panel (01/27/2025 8:14 AM EDT) Bilirubin, Total 0.5 0.0 - 1.0 mg/dL [facility] Bilirubin, Direct 0.2 0.0 - 0.5 mg/dL [facility] Aspartate Amino Transferase 31 5 - 31 U/L [facility] Alanine Aminotransferase 46(H) 0 - 31 U/L [facility] Total Protein 6.9 6.5 - 8.0 g/dL [facility] Albumin Level 4.5 3.5 - 5.0 g/dL [facility] Alkaline Phosphatase 71 39 - 117 U/L [facility] Blood Venous blood specimen / Unknown 01/27/2025 8:14 AM EDT 01/27/2025 11:06 AM EDT Susan Wayne MD LAB BLOOD ORDERABLES Final Result [facility] [address] [place] [phone] documented in this encounter Visit Diagnoses Diagnosis Mixed hypercholesterolemia and hypertriglyceridemia- Primary Mixed hyperlipidemia Gastroesophageal reflux disease, unspecified whether esophagitis present Vitamin D deficiency Screening for diabetes mellitus documented in this encounter Care Teams General Claims Agent Relationship Specialty Start Date End Date Susan Wayne MD [address] [place] [phone] PCP - General Family Medicine 01/26/25 documented as of this encounter
--- OUTSIDE RECORDS SUMMARY | 2025-04-09 09:31 | XMS_ITS | Encounter Summary ---
Author Organization [employer] [facility] Address [address] [place] [address] [address] [place] [address] Care Team Providers Care Medical Manager Name Role Phone Susan Wayne MD Primary Care Provider [phone]- [phone] Susan Wayne MD Primary Care Provider +1- [phone] Encounter Details Date Type Department Care Team (Late Contact Info) Description 08/22/2023 Orders Only [facility] [address] [place] [address] [phone] Susan Wayne MD [address] [place] [address] [phone] Social History Tobacco Use Types Packs/Day Years [...] Description 04/15/2025 10:30 AM EDT Office Visit [facility] [address] [place] [address] [phone] Susan Wayne MD [address] [place] [address] [phone] documented as of this encounter Visit Diagnoses Not on filedocumented in this encounter Care Teams Medical Manager Relationship Specialty Start Date End Date Susan Wayne MD [address] [place] [phone] PCP - General Family Medicine 07/16/18 04/13/24 Susan Wanye MD [address] [place] [phone] PCP - General Family Medicine 01/26/25 documented as of this encounter
--- OUTSIDE RECORDS SUMMARY | 2025-04-09 09:31 | XMS_ITS | Clinical Summary ---
Author Organization [employer] Address [address] [place] [address] [address] [place] [address] Care Team Providers Care Auto Body Service Mechanic Name Role Phone Susan Wayne MD Primary Care Provider [phone] Allergies No known active allergies Medications acyclovir (Zovirax) 800 MG tablet take 1 tablet by oral route 3 times every day for 7 days as needed 2 Active cholecalciferol (Vitamin D-3) 25 MCG (1000 UT) tablet Active fluticasone (Flonase Allergy Relief) 50 MCG/ACT nasal spray Administer 1-2 sprays into affected nostril(s) at bed time. 0 Active loratadine (Claritin) 10 MG tablet Take 1 tablet by mouth at bed time. 0 Active omeprazole (PriLOSEC) [address] capsule Take 1 capsule by mouth at bed time. 2 Active ciclopirox (Penlac) 8 % solutionIndicati ons:Onychomycosi s Apply topically at bedtime. 6 mL 5 Active acyclovir (Zovirax) 800 MG tabletIndication s:Genital herpes simplex, unspecified site TAKE 1 TABLET TWICE A DAY FOR 3 DAYS THEN TAKE 1 TABLET 3 TIMES A DAY FOR 2 DAYS 20 tablet 1 5 Active Active Problems Problem Noted Date Diagnosed Date Blood glucose elevated 01/28/2025 Dyslipidemia 01/28/2025 Chronic pain of left knee 01/27/2025 Onychomycosis 01/27/2025 Breast pain 01/27/2025 Breast nodule 01/27/2025 Cardiac risk counseling 03/21/2024 Overview (03/21/2024): Calculated 03/21/24 The ASCVD Risk score (John COLLAZO, et al., 2019) failed to calculate for the following reasons: The systolic blood pressure is missing Lab Results Component Value Date LDLCHOL 147 (H) 06/07/2021 -Atherosclerotic Cardiovascular Disease (ASCVD) Risk Calculator is intended for a person age 40-79 without ASCVD and with LDL-cholesterol < 190/mg/dl to assesses the chances of developing heart disease over the next 10 years. -ACC/AHA risk categories based on a person's estimated 10-year risk of CVD: ?Low - <5 percent ?Borderline risk - 5 to 7.4 percent ?Intermediate risk- 7.5 to 19.9 percent ?High risk- >=20 percent -Tobacco cessation: not applicable -Statin therapy:N/A -Importance of moderate physical activity and nutrition interventions discussed. Colon cancer screening 08/22/2023 Overview (08/22/2023): -Colonoscopy 01/[address] Bassett, next due 10 years. 01/2023 Gastroesophageal reflux disease 04/23/2023 04/23/2023 Vitamin D deficiency 04/23/2023 04/23/2023 Preventative health care 04/23/2023 Overview (04/23/2023): -next physical exam due after -eye care facilitated by -dental home is H/O: hysterectomy 09/20/2021 04/23/2023 Hx of herpes genitalis 09/20/2021 Degenerative joint disease of hand 06/23/2013 04/23/2023 Mixed hypercholesterolemia and hypertriglyceride tiffanie 06/23/2013 04/23/2023 Allergic rhinitis 07/10/2012 04/23/2023 Depressive disorder 07/10/2012 04/23/2023 Eczema 07/10/2012 04/23/2023 Varicose veins of lower extremity 07/10/2012 04/23/2023 Glaucoma 07/10/2012 04/23/2023 Encounters Date Type Department Care Team Description 04/08/2025 Travel 04/08/2025 Patient Outreach [facility] [address] [place] [phone] Susan Wayne MD Pre-visit Planning ((Unable to reach for PVP screening, LVM) to be completed in office ) 01/28/2025 Results Follow-Up [address] [address] Juliane Sahni MD XR Knee 4+ Views Left 01/28/2025 Results Follow-Up [address] [phone] Susan Wayne MD Hepatic Function Panel, Lipid Panel, Standard, Basic Metabolic Panel, Additional followed-up results: 2 01/27/2025 9:20 AM EDT Office Visit [facility] [address] [address] Juliane Sahni MD Genital herpes simplex, unspecified site (Primary Dx); Chronic pain of left knee; Onychomycosis; Breast pain; Breast nodule 01/27/2025 Refill [facility] [address] [place] [phone] Juliane Sahni MD Genital herpes simplex, unspecified site 01/27/2025 Travel 01/26/2025 Orders Only [address] [address] Susan Wayne MD Mixed hypercholesterolemia and hypertriglyceridemia (Primary Dx); Gastroesophageal reflux disease, unspecified whether esophagitis present; Vitamin D deficiency; Screening for diabetes mellitus 01/26/[address] [phone] Susan Wayne MD 01/20/2025 Telephone [facility] [address] [place] [phone] Juliana Crow MD 01/08/[address] [phone] Kvng Pope MD New Pt from Last 3 Months Immunizations Immunization Administration Dates Next Due Influenza injectable quadriv alent IIV4 with preservative 04/11/2018 Influenza injectable quadriv alent preservative free 06/03/2021,04/10/2019,05/18/2016,04/07 Influenza, IIV3, injectable 04/13/2014, 1 Influenza, Split (incl. leo fied surface antigen) 06/23/2013,07/10/2012 Fish SARS-CoV-2 Vaccination 04/27/2021 Pneumococcal Polysaccharide PPSV23 06/03/2021 TD (adult), 2 Lf tetanus tox oid, preservative free, adsorbed 01/24/2001 Tdap 10/12/2014 Zoster, Recombinant 06/07/2021 Social History Tobacco Use Types Packs/Day Years [...] not to disclose 2021 10:14 AM EDT Last Filed Vital Signs Vital Sign Reading Time Taken Comments Blood Pressure 135/69 01/27/2025 8:55 AM EDT Pulse 69 01/27/2025 8:55 AM EDT Temperature 36.7 C (98.1 F) 01/27/2025 8:55 AM EDT Respiratory Rate 16 01/27/2025 8:55 AM EDT Oxygen Saturation 97% 01/27/2025 8:55 AM EDT Inhaled Oxygen Concentration - - Weight 83 kg (183 lb) 01/27/2025 8:55 AM EDT Height 165.1 cm (5' 5 ) 06/03/2021 12:11 AM EST Body Mass Index 30.45 06/03/2021 12:11 AM EST Plan of Treatment Upcoming Encounters Date Type Department Care Team (Late st Contact Info) Description 04/15/2025 10:30 AM EDT Office Visit [facility] [address] [place] [address] Susan Wayne MD [address] [place] [address] Health Maintenance Due Date Last Done Comments CT Colonography 1955 Depression Screening 1955 FIT DNA/Cologuard 1955 FIT 1955 FOBT 1955 SDOH Screening 1955 Sigmoidoscopy 1955 Alcohol/Substance Use Screening 1968 Hepatitis C Screening 1974 Zoster Vaccines (2 of 2) 08/02/2021 06/07/2021 Pneumococcal Vaccine: 50+ Years (2 of 2 - PCV) 06/03/2022 06/03/2021 Mammogram 09/02/2022 09/02/2021, 08/16, 09/02/2021, Additional history exists Tobacco Screening 08/22/2024 08/22/2023 DTaP/Tdap/Td Vaccines (2 - Td or Tdap) 10/12/2024 10/12/2014, 01/24/2001 COVID-19 Vaccine (2 - season) 2025 04/27/2021 Influenza Vaccine (#1) 2025 , 04/10/2019, 04/11/2018, Additional history exists RSV Patients and Patients Aged 60 years or older (1 - 1-dose 75+ series) 2031 Colonoscopy 09/06/2033 01/13/2013 Colorectal Cancer Screening 09/06/2033 HIB Vaccines Aged Out No longer eligi ble based on patient's age to complete this topic HPV Vaccines Aged Out No longer eligi ble based on patient's age to complete this topic Hepatitis A Vaccines Aged Out No long er eligible based on patient's age to complete this topic Hepatitis B Vaccines Aged Out No long er eligible based on patient's age to complete this topic IPV Vaccines Aged Out No longer eligi ble based on patient's age to complete this topic Meningococcal B Vaccine Aged Out No l onger eligible based on patient's age to complete this topic Meningococcal Vaccine Aged Out No tari karson eligible based on patient's age to complete this topic RSV under 20 months Aged Out No longe r eligible based on patient's age to complete this topic Rotavirus Vaccines Aged Out No longer eligible based on patient's age to complete this topic Procedures Procedure Name Priority Date/Time Associated Diagnosis Comments XR KNEE 4+ VIEWS LEFT Routine 01/27/2025 10:05 AM EDT Chronic pain of left knee VITAMIN D,25-OH,TOTAL,IA Routine 01/27/2025 8:14 AM EDT Vitamin D deficiency CBC WITH AUTO DIFFERENTIAL Routine 01/27/2025 8:14 AM EDT Screening for diabetes mellitus BASIC METABOLIC PANEL Routine 01/27/2025 8:14 AM EDT Screening for diabetes mellitus LIPID PANEL, STANDARD Routine 01/27/2025 8:14 AM EDT Mixed hypercholesterolemia and hypertriglyceridemia HEPATIC FUNCTION PANEL Routine 01/27/2025 8:14 AM EDT Mixed hypercholesterolemia and hypertriglyceridemia MAMMOGRAPHY Routine 09/02/2021 COLONOSCOPY Routine 01/13/2013 from Last 3 Months or Most Recently Relevant to Health Maintenance Results * XR Knee 4+ Views Left (01/27/2025 10:05 AM EDT) Anatomical Region Laterality Modality Lower Extremities, Knee Left Radiogra phic Imaging 01/27/2025 10:0 5 AM EDT Narrative 01/27/2025 11:46 AM EDT [place] [address] XRay Report Signed Patient: Bassem Flood MR#: [id number] 37 : 1955 Acct:[id number] Age/Sex: 69 / F ADM Date: 01/27/25 Loc: [facility] Attending Dr: Susan Wayne MD Ordering Physician: Juliane Sahni MD Date of Service: 01/27/25 Procedure(s): XR knee LT 4V Accession Number(s): [id number] cc: Juliane Sahni MD; Susan Wayne MD EXAMINATION: XR KNEE, LEFT CLINICAL INFORMATION: pain COMPARISON: None available. TECHNIQUE: Four views of the left knee. FINDINGS: Joint spaces are preserved. There is no joint effusion. There is a small osteophyte involving the lateral patella margin. XR/XR knee LT 4V IMPRESSION: Small patellar osteophyte is consistent with very minimal osteoarthritis. Electronically signed by: Matty Zacarias MD 01/27/2025 11:43 AM EDT RP Dictated By: Matty Zacarias MD Signed By: <Electronically signed by Matty Zacarias MD in OV> 01/27/25 1143 DD/ 1005 TD/TT: 01/27/25 1020 Lapper: Procedure Note Ophelia, Lisa - 01/27/2025 [place] [address] XRay Report Signed Patient: Leslie Flood#: [id number] 37 : 1955cct:[id number] Age/Sex: 69 / FADM Date: 01/27/25 Loc: HO.[facility] Attending Dr: Susan Wanye MD Ordering Physician: Juliane Sahni MD Date of Service: 01/27/25 Procedure(s): XR knee LT 4V Accession Number(s): [id number] cc: Juliane Sahni MD; Susan Wayne MD EXAMINATION: XR KNEE, LEFT CLINICAL INFORMATION: pain COMPARISON: None available. TECHNIQUE: Four views of the left knee. FINDINGS: Joint spaces are preserved. There is no joint effusion. There is a small osteophyte involving the lateral patella margin. XR/XR knee LT 4V IMPRESSION: Small patellar osteophyte is consistent with very minimal osteoarthritis. Electronically signed by: Matty Zacarias MD 01/27/2025 11:43 AM EDT RP Dictated By: Matty Zacarias MD Signed By: <Electronically signed by Matty Zacarias MD in OV> 01/27/25 1143 DD/ 1005 TD/TT: 01/27/25 1020 Lapper: us Juliane Kiser MD IMG XR PROCEDURES Fin al Result * Vitamin D, 25-Hydroxy, Total, Immunoassay (01/27/2025 8:14 AM EDT) Vitamin D 25-OH Total 92.2 >30 ng/mL [facility] Comment: Health Based Reference Values*< 20 ng/mL Diioouepx63-96 ng/mL Insufficient> 30 ng/mL Sufficient*Devon FIGUEROA. N [...] Wayne MD LAB BLOOD ORDERABLES Final Result [facility] [address] [place] [address] [phone] * (ABNORMAL) CBC auto differential (01/27/2025 8:14 AM EDT) White Blood Count 10.0 4.8 - 10.8 X10*3/uL [facility] Red Blood Count 4.75 4.20 - 5.50 X10*6/uL [facility] Hemoglobin 14.0 12.0 - 16.0 g/dl [facility] Hematocrit 42.6 37.0 - 47.0 % [facility] Mean Corpuscular Volume 89.7 80.0 - 98.0 fL [facility] Mean Corpuscular Hemoglobin 29.5 27.0 - 33.0 pg [facility] Mean Corpuscular HGB Conc 32.9 31.0 - 35.0 g/dl [facility] Red Cell Distribution Width 12.2 11.0 - 16.0 % [facility] Platelet Count 283 160 - 400 X10*3/uL [facility] Mean Platelet Volume 10.3 9.4 - 12.3 fL [facility] Neutrophils Percent Auto 46.1 45 - 73 % [facility] Imm Gran Pct Auto 0.4 0.0 - 0.4 % [facility] Lymphocytes Percent Auto 42.8(H) 20 - 40 % [facility] Monocytes Percent Auto 6.9 2 - 11 % [facility] Eosinophils Percent Auto 3.1 0 - 4 % [facility] Basophils Percent Auto 0.7 0 - 2 % [facility] NRBC Pct Auto 0.0 0.0 - 0.2 /100WBC [facility] Neutrophils Absolute Auto 4.6 2.0 - 8.3 x10*3/uL [facility] Imm Gran Abs Auto 0.04(H) 0.00 - 0.03 X10*3/uL [facility] Lymphocytes Absolute Auto 4.3 1.2 - 4.9 X10*3/uL [facility] Monocytes Absolute Auto 0.7 0.1 - 1.2 X10*3/uL [facility] Eosinophils Absolute Auto 0.3 0.0 - 0.4 X10*3/uL [facility] Basophils Absolute Auto 0.1 0.0 - 0.2 X10*3/uL [facility] NRBC Abs Auto 0.000 0.0 - 0.012 X10*3/uL [facility] Blood Venous blood specimen / Unknown 01/27/2025 8:14 AM EDT 01/27/2025 11:06 AM EDT Susan Wayne MD LAB BLOOD ORDERABLES Final Result Performing Organization Address [facility]/ZIP Co de Phone Number [facility] [address] [place] [phone] * (ABNORMAL) Hepatic Function Panel (01/27/2025 8:14 AM EDT) Bilirubin, Total 0.5 0.0 - 1.0 mg/dL [facility] Bilirubin, Direct 0.2 0.0 - 0.5 mg/dL [facility] Aspartate Amino Transferase 31 5 - 31 U/L [facility] Alanine Aminotransferase 46(H) 0 - 31 U/L [facility] Total Protein 6.9 6.5 - 8.0 g/dL [facility] Albumin Level 4.5 3.5 - 5.0 g/dL [facility] Alkaline Phosphatase 71 39 - 117 U/L [facility] Blood Venous blood specimen / Unknown 01/27/2025 8:14 AM EDT 01/27/2025 11:06 AM EDT Susan Wayne MD LAB BLOOD ORDERABLES Final Result Performing Organization Address [facility] Co de Phone Number [facility] [address] [place] [phone] * (ABNORMAL) Lipid Panel, Standard (01/27/2025 8:14 AM EDT) Triglycerides 147 <150 mg/dL [facility] Comment:Desirable Triglyceri de: less than 150 mg/dLBorderline High Triglyceride 150-199 mg/dLHigh Triglyceride: 200-499 mg/dLVery High Triglyceride: greater than or equal to 5OO mg/dL Cholesterol 202(H) <200 mg/dL [facility] Comment:Desirable Cholestero l: less than 200 mg/dLBorderline High Cholesterol: 200-239 mg/dLHigh Cholesterol: greater than 239 mg/dL LDL Cholesterol Calculated 126(H) <100 mg/dL [facility] Comment:Desirable LDL: less than 100 mg/dLNear Optimal/Above Optimal LDL: 110- 129 mg/dLBorderline High LDL: 130-159 mg/dLHigh LDL: 160-189 mg/dLVery High LDL: greater than or equal to 190 mg/dL HDL Cholesterol 47 >40 mg/dL [facility] Comment:Desirable HDL: great er than 40 mg/dL Note: This HDL assay may give artificially low results in patients with liver disease. Blood Venous blood specimen / Unknown 01/27/2025 8:14 AM EDT 01/27/2025 11:06 AM EDT Susan Wayne MD LAB BLOOD ORDERABLES Final Result [facility] [address] [place] [phone] * (ABNORMAL) Basic Metabolic Panel (01/27/2025 8:14 AM EDT) Sodium 145 135 - 145 mmol/L [facility] Potassium 4.8 3.3 - 5.1 mmol/L [facility] Chloride 108 96 - 108 mmol/L [facility] Carbon Dioxide 29 22 - 29 mmol/L [facility] Anion Gap 13 12 - 20 [facility] Urea Nitrogen (BUN) 21(H) 9 - 16 mg/dL [facility] Creatinine, Serum 0.75 0.5 - 1.4 mg/dL [facility] Estimated Glomerular Filt Rate >60 [facility] Comment:Chronic Kidney Disea se: Estimated GFR < 60 mL/min/[id number] Kidney Disease: Estimated GFR < 15 mL/min/1.73m2 Glucose 120(H) 60 - 115 mg/dL [facility] Calcium 9.4 8.4 - 10.2 mg/dL [facility] Blood Venous blood specimen / Unknown 01/27/2025 8:14 AM EDT 01/27/2025 11:06 AM EDT Susan Wayne MD LAB BLOOD ORDERABLES Final Result [facility] [address] [place] [phone] * Mammography (09/02/2021) Mammogram abnormal Anatomical Region Laterality Modality Other Historical Provider HEALTH MAINTENANCE Final Result * Colonoscopy (01/13/2013) Colonoscopy Dr. Bassett normal Historical Provider HEALTH MAINTENANCE Final Result from Last 3 Months or Most Recently Relevant to Health Maintenance Insurance [facility] Care Teams Auto Body Service Mechanic Relationship Specialty Start Date End Date Bailey, MD Susan [address] [place] [phone] PCP - General Family Medicine 01/26/25
[2025-04-09 11:34] LABS: Hemoglobin A1C 153.5059 umol/L; Total Hemoglobin (HGBA1C) 3535.8560 umol/L
[2025-04-09 11:50] LABS: Cholesterol 204 mg/dL (<200); HDL Cholesterol 43 mg/dL (>40); Triglycerides 131 mg/dL (<150)
== END 2025-04-09 08:53 | disposition home or self-care (01) ==
LOC: HO.HHCL 08:52
PROVIDERS: PCP Internal Medicine; Visit Provider Family Medicine
DX: R73.9 Hyperglycemia, unspecified (principal); E78.5 Hyperlipidemia, unspecified
CPT/HCPCS: 36415; 80061; 83036

== ENCOUNTER 2025-04-16 13:24 | Outpatient (REF) | payer MEDICARE, SELFPAY ==
--- OUTSIDE RECORDS SUMMARY | 2025-01-22 08:29 | XMS_ITS | Continuity of Care Document ---
Author Organization [facility] Address [address] [place] [address] Phone Care Team Providers Care Screening Representative Name Role Phone No Information Unavailable Unavailable [...] the affected area(s) 2.00 gram - Active [place] 230 mg-70 mg topical patch Apply to [...] Diagnoses Date Provider Providers Copied on Encounter [facility], [address] [place] [address], [id number], tel:[phone] No Information 5 No Information [facility], [address] [place] [address], [id number], [place] tel:[phone] [facility] No Information 3 [facility]. [address] [place] [address], [id number], . tel:[phone] Office/outpa tient visit,[facility], [address] [place] [address], [id number], [place] tel:[phone] [facility] Follow Up of hyperlipidemi a (chief complaint)frandy k pain (chief complaint)All ergies (chief complaint) Body mass index [BMI] 28.0-28.9, adultBack painOther muscle spasmMixed hyperlipidemi aOther seasonal allergic rhinitisOther spondylosis, lumbar region 3 [facility]. [address] [place] [address], [id number], . tel:[phone] Office/outpa tient visit,[facility], [address] [place] [address], [id number], [place] tel:[phone] [facility] back pain (chief complaint) Body mass index [BMI] 28.0-28.9, adultBack pain 3 No Information Office/outpa tient visit,[facility], [address] [place] [address], [id number], [place] tel:[phone] [facility] hyperlipidemi a (chief complaint)col onoscopy (chief complaint) Mixed hyperlipidemi aEncounter for screening for Ca of colonOth abn and inconclusive findings on dx imaging of breast 3 [facility]. [address] [place] [address], [id number], [place]. tel:[phone] Preventive checkup, new,65+ yrs [facility], [address] [place] [address], [id number], [place] tel:[phone] [facility] Established care (chief complaint)Her pes (chief [...] findings on dx imaging of breast 3 [facility]. [address] [place] [address], [id number], [place]. tel:[phone] Family History Family Member Type Diagnosis Age [...] C scre ening. Due on due Goal Zoster vaccine ( 1st). Due on due Goal Occult Blood, [place], [place]. Due on due Goal Breast MRI. Due on due Goal Pneumococcal vac cine. Due on due Goal Breast Exam. Due [...] due Goal Tdap. Due on due Goal FIT. Due on due Goal Influenza vaccin e. Due on due Goal Lipid Panel w/No n-HDL, Chol/HDL Ratio Calc. Due on due Goal Breast Exam. Due on due Goal Colonoscopy. Due on due Goal Dental exam. Due on due Goal Depression scree minoo. [...] Lifestyle educat ion regarding diet completed Goal Td vaccine. Due on due Goal Lipid Panel w/No n-HDL, Chol/HDL Ratio Calc. Due on due Goal CT-Colonography. Due on due Goal Influenza vaccin e. Due on due Goal Depression scree minoo. Due on due Goal Breast MRI. Due on due Goal Breast Exam. Due on due Goal Pneumococcal vac cine. Due on due Goal Lipid panel. Due on due Goal DEXA scan. Due on due Goal Hepatitis C scre ening. Due on due Goal Sigmoidoscopy. Due on due Goal Dental exam. Due [...] due Goal FIT-DNA. Due on due Goal CT-Colonography. Due on due Goal Lipid Panel w/No n-HDL, Chol/HDL Ratio Calc. Due on due Goal Pneumococcal vac cine. Due on due Goal Lipid panel. Due on due Goal Hepatitis C scre ening. Due on due Goal Influenza vaccin e. Due on due Goal Breast MRI. Due on due Goal Sigmoidoscopy. Due on due Goal Occult Blood, [place], [place]. Due on due Goal Unhealthy drug u se screening. Due on due Goal Breast Exam. Due on due Goal Dental exam. Due on due Goal Depression parul hennessy. Due on due Referral Ordered: Gastroenterology (related to Encounter for screening for Ca of colon) ordered Referral Ordered: Referrals: Gastroenterology. Evaluate and treat ordered Referral Ordered: Referrals: Ophthalmology. Evaluate and treat Appointment date/timeframe: 01/10/2023 ordered Future Order: Radiology Order MG Screening Mammogram CAD BILATERAL ([id number]), Sent on: Sent Future Order: Radiology Order MG Diagnostic Mammogram CAD BILATERAL ([id number]), Sent on: Sent Future Order: Radiology Order MG Diagnostic Mammogram CAD BILATERAL ([id number]), Collected on: , Sent on: Sent Nutrition [...] changes or added fish oil to diet. [facility] Herpes has history of h erpes. Currently [...]
--- OUTSIDE RECORDS SUMMARY | 2025-04-15 10:30 | XMS_ITS | Encounter Summary ---
Author Organization [employer] Address [address] [facility] [address] [place] [address] Care Team Providers Care Shank Sorter Name Role Phone Susan Wayne MD Primary Care Provider [phone]- [phone] Manjinder Trejo MD Unavailable [phone] Reason for Visit * Reason Comments Annual Exam Encounter Details Date Type Department Care Team (Latest Contact Info) Description 04/15/2025 10:30 AM EDT Office Visit [facility] MEDICINE [address] [place] [address] Susan Wayne MD [address] [place] [address] Mixed hypercholesterolemia and hypertriglyceridemia (Primary Dx); Neck swelling; Prediabetes; Preventative health care; Encounter for immunization; Dietary counseling; Exercise counseling; Overweight; Encounter for hepatitis C screening test for low risk patient Social History Tobacco Use Types Packs/Day Years Used Date Smoking Tobacco: Never Smokeless Tobacco: Never Alcohol Use Standard Drinks/Week Comments Never 0 (1 standard drink = 0.6 oz pur e alcohol) Depression Answer Date Recorded Patient Health Questionnaire-9 Score 2 04/15/2025 Patient Health Questionnaire-9 Score 2 04/15/2025 Last PHQ-9: Questionnaire Data Not on file 1 Housing Stability Answer Date Recorded What is your housing situation today? I have rajiv patel 04/15/[address] you li ve. Do you have problems with any of the following? None of the above 04/15/2025 Food Insecurity Answer Date Recorded Within the past 12 months, y ou worried that your food would run out before you got money to buy more: Never True 04/15/2025 Within the past 12 months,th e food you bought just didn't last and you didn't have enough money to get more: Never True 07/2024 Transportation Answer Date Recorded In the past 12 months, has l ack of transportation kept you from medical appts, meetings, work or from getting things needed for daily living? No 04/15/2025 Utilities Answer Date Recorded In the past 12 months, has t he electric, gas, oil or water company threatened to shut off services in your home? No 04/15/2025 Depression Answer Date Recorded Patient Health Questionnaire-2 Score 0 04/15/2025 Internet Access Answer Date Recorded Internet Access Q1 No 04/15/2025 Internet Access Q2 I do not want or need it 07/2024 Comments Unknown Sex and Gender Information Value Date Recorded Sex Assigned at Female 05/15/2022 10:14 AM EDT Legal Sex Female 10:14 AM EDT Gender Identity Female 05/15/2022 10:14 AM EDT Sexual Orientation Choose not to disclose 2021 10:14 AM EDT documented as of this encounter Last Filed Vital Signs Vital Sign Reading Time Taken Comments Blood Pressure 120/62 04/15/2025 10:23 AM EDT Pulse 74 04/15/2025 10:23 AM EDT Temperature 37.2 C (98.9 F) 04/15/2025 10:23 AM EDT Respiratory Rate 20 04/15/2025 10:2 3 AM EDT Oxygen Saturation 96% 04/15/2025 10: 23 AM EDT Inhaled Oxygen Concentration - - Weight 81.1 kg (178 lb 12.8 oz) 025 10:23 AM EDT Height 162.6 cm (5' 4 ) 04/15/2025 10:2 3 AM EDT Body Mass Index 30.69 04/15/2025 10:23 AM EDT documented in this encounter Functional Status * Over the past 2 weeks, how often have you been bothered by any of the following problems? Question Answer Date of Assessment Author Patient Health Questionnaire-2 Score 0 07/2024 11:10 AM EDT Echo Velásquez MA * Little interest or pleasure in doing things Answer Date of Assessment Author Not at all 04/15/2025 11:10 AM Wendy De Dios MA * Feeling down, depressed, or hopeless Answer Date of Assessment Author Not at all 04/15/2025 11:10 AM Wendy De Dios MA * Trouble falling or staying asleep, or sleeping too much Answer Date of Assessment Author Several days 04/15/2025 11:10 AM Wendy De Dios MA * Feeling tired or having little energy Answer Date of Assessment Author Not at all 04/15/2025 11:10 AM Wendy De Dios MA * Poor appetite or overeating Answer Date of Assessment Author Not at all 04/15/2025 11:10 AM Wendy De Dios MA * Feeling bad about yourself - or that you are a failure or have let yourself or your family down Answer Date of Assessment Author Not at all 04/15/2025 11:10 AM Wendy De Dios MA * Trouble concentrating on things, such as reading the newspaper or watching television Answer Date of Assessment Author Several days 04/15/2025 11:10 AM Wendy De Dios MA * Moving or speaking so slowly that other people could have noticed? Or the opposite - being so fidgety or restless that you have been moving around a lot more than usual. Answer Date of Assessment Author Not at all 04/15/2025 11:10 AM Wendy De Dios MA * Thoughts that you would be better off or hurting yourself in some way Answer Date of Assessment Author Not at all 04/15/2025 11:10 AM Wendy De Dios MA * Patient Health Questionnaire-9 Score Answer Date of Assessment Author 2 04/15/2025 11:10 AM Wendy De Dios MA * How difficult have these problems made it for you to do your work, take care of things at home, or get along with other people? Answer Date of Assessment Author Not difficult at all 04/15/2025 11:10 AM Echo Pedersen MA * Over the last 2 weeks, how often have you been bothered by any of the following problems? Question Answer Date of Assessment Author Feeling nervous, anxious, or on edge 0 07/2024 11:11 AM Echo De Dios MA Not being able to stop or co ntrol worrying 0 04/15/2025 11:11 AM Echo De Dios M A Worrying too much about diff erent things 1 04/15/2025 11:11 AM Echo De Dios M A Trouble relaxing 0 04/15/2025 11:11 AM Echo De Dios MA Being so restless that it is hard to sit still 0 04/15/2025 11:11 AM Echo De Dios M A Becoming easily annoyed or irritable 0 07/2024 11:11 AM Echo De Dios MA Feeling afraid as if somethi ng awful might happen 1 04/15/2025 11:11 AM Echo De Dios M A SANDIE-7 Total Score 2 04/15/2025 11:11 AM Echo De Dios MA documented as of this encounter Progress Notes * Susan Wayne MD - 04/15/2025 10:30 AM EDT Fredo Luevano is a 69 y.o. female who presents to the office today for a routine physical. She recently returned to the area from [place]. She has not concerns. She does not like to take prescribed medications if they can be avoided. She wants to work on her cholesterol with lifestyle modification. Only concern is sometimes she feels fullness in her throat and her ears feel blocked. Social History Tobacco: denied Drugs: none Alcohol: No Sexuality: Denies current sexual activity Suicide/Depression: The patient denies any present symptoms of depression or anxiety. Review of Systems Constitutional: Negative for fatigue, fever and unexpected weight change. Respiratory: Negative for cough. Cardiovascular: Negative for chest pain. Gastrointestinal: Negative for abdominal pain. Genitourinary: Negative for difficulty urinating. Current Medications[1] Allergies[2] Medical History[3] Surgical History[4] Family History[5] Objective Visit Vitals BP 120/62 (BP Location: Left arm, Patient Position: Sitting, BP Cuff Size: Adult) Pulse 74 Temp 98.9 ??F (37.2 ??C) (Oral) Resp 20 Ht 5' 4 (1.626 m) Wt 178 lb 12.8 oz (81.1 kg) SpO2 96% BMI 30.69 kg/m?? Smoking Status Never BSA 1.91 m?? Physical Exam Constitutional: Appearance: Normal appearance. HENT: Head: Normocephalic. Right Ear: Tympanic membrane normal. Left Ear: Tympanic membrane normal. Mouth/Throat: Pharynx: Oropharynx is clear. Eyes: Pupils: Pupils are equal, round, and reactive to light. Cardiovascular: Rate and Rhythm: Normal rate and regular rhythm. Heart sounds: Normal heart sounds. Pulmonary: Effort: Pulmonary effort is normal. Breath sounds: Normal breath sounds. Chest: Breasts: Stanley Score is 5. Breasts are symmetrical. Right: Normal. No inverted nipple, mass, nipple discharge or skin change. Left: Normal. No inverted nipple, mass, nipple discharge or skin change. Abdominal: General: Abdomen is flat. Palpations: There is no mass. Tenderness: There is no abdominal tenderness. Musculoskeletal: General: Normal range of motion. Cervical back: Normal range of motion and neck supple. Lymphadenopathy: Cervical: No cervical adenopathy. Upper Body: Right upper body: No supraclavicular or axillary adenopathy. Left upper body: No supraclavicular or axillary adenopathy. Skin: General: Skin is warm and dry. Neurological: General: No focal deficit present. Mental Status: She is alert. Psychiatric: Behavior: Behavior normal. 69 y.o. female physical exam. Assessment & Plan Mixed hypercholesterolemia and hypertriglyceridemia Lab Results Component Value Date CHOL 204 (H) 04/09/2025 CHOL 202 (H) 01/27/2025 TRIG 131 04/09/2025 TRIG 147 01/27/2025 HDL 43 04/09/2025 HDL 47 01/27/2025 LDLCHOLCAL 135 (H) 04/09/2025 LDLCHOLCAL 126 (H) 01/27/2025 -continue lifestyle modification, declines statin, would like to continue lifestyle modification Orders: Lipid Panel, Standard; Future Neck swelling Sensation of neck fullness. Normal exam. Will check TSH Orders: TSH W/Reflex to FT4; Future Prediabetes Lab Results Component Value Date HGBA1C 6.1 (H) 04/09/2025 GLUCOSE 120 (H) 01/27/2025 -lifestyle modification discussed, she declines metformin Orders: Hemoglobin A1c; Future Preventative health care -next physical exam due after 04/15/26 -eye care facilitated by Dr. Manjinder Trejo of [facility] -dental home is encouraged -health care proxy filed 04/15/25 Encounter for immunization Orders: FLU VACCINE TRIVALENT HIGH DOSE [id number] (Fluzone) 65 yrs + PCV-20 VACCINE 6 wks + TDAP VACCINE 7 yrs + Dietary counseling Dietary Recommendations: Fruits, vegetables, whole grains, protein foods, and fat-free or low-fat dairy products are healthychoices. Eat different types of protein foods in your diet. This can include seafood, lean meats, poultry, beans, peas, lentils, nuts, seeds, soy products, and eggs. Limit foods and beverages higher in added sugars, saturated fat, and sodium. Exercise Recommendations: At least 150 minutes of moderate-intensity physical activity per week, or an equivalent combinationof moderate- and vigorous-intensity activity Exercise counseling Overweight Encounter for hepatitis C screening test for low risk patient Orders: Hepatitis C Antibody with Reflex to HCV, RNA, Quantitative, Real-Time PCR; Future Physical exam -Normal growth and development. -Anticipatory guidance discussed. -Preventative care / harm reduction discussed. Follow up in about 4 months (around 08/16/2025) for f/u chol and prediabetes. 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 Manjinder Trejo of [facility] -dental home is encouraged -health care proxy filed 04/15/25 * Assessment & Plan Note - Susan Wayne MD - 04/15/2025 10:30 AM EDT Associated Problem(s): Mixed hypercholesterolemia and hypertriglyceridemia Lab Results Component Value Date CHOL 204 (H) 04/09/2025 CHOL 202 (H) 01/27/2025 TRIG 131 04/09/2025 TRIG 147 01/27/2025 HDL 43 04/09/2025 HDL 47 01/27/2025 LDLCHOLCAL 135 (H) 04/09/2025 LDLCHOLCAL 126 (H) 01/27/2025 -continue lifestyle modification, declines statin, would like to continue lifestyle modification Orders: Lipid Panel, Standard; Future * Assessment & Plan Note - Susan Wayne MD - 04/15/2025 10:30 AM EDT Associated Problem(s): Prediabetes Lab Results Component Value Date HGBA1C 6.1 (H) 04/09/2025 GLUCOSE 120 (H) 01/27/2025 -lifestyle modification discussed, she declines metformin Orders: Hemoglobin A1c; Future documented in this encounter Plan of Treatment Scheduled Orders Name Type Priority Associated Diagnoses Orde r Schedule TSH W/Reflex to FT4 Lab Routine Neck swelling Expected: 04/15/2025 (Approximate), Expires: 04/15/2026 Hemoglobin A1c Lab Routine Prediabetes Expected: 07/16/2025 (Approximate), Expires: 04/15/2026 Lipid Panel, Standard Lab Routine Mixed hypercholesterolemia and hypertriglyceridemia Expected: 07/16/2025 (Approximate), Expires: 04/15/2026 Hepatitis C Antibody with Reflex to HCV, RNA, Quantitative, Real-Time PCR Lab Routine Encounter for hepatitis C screening test for low risk patient Expected: 04/15/2025, Expires: 04/15/2026 documented as of this encounter Visit Diagnoses Diagnosis Mixed hypercholesterolemia and hypertriglyceridemia- Primary Mixed hyperlipidemia Neck swelling Swelling, mass, or lump in head and neck Prediabetes Other abnormal glucose Preventative health care Routine general medical examination at a health care facility Encounter for immunization Dietary counseling Dietary surveillance and counseling Exercise counseling Overweight Encounter for hepatitis C screening test for low risk patient documented in this encounter Additional Health Concerns Assessment Noted Time PHQ-9 Depression Total Score: 2 04/15/20 11:10 AM EDT documented as of this encounter Care Teams Shank Sorter Relationship Specialty Start Date End Date Susan Wayne MD [address] [place] [phone] PCP - General Family Medicine 01/26/25 Manjinder Trejo MD [address] [place] [phone] Ophthalmology 04/15/25 documented as of this encounter
--- NOTE | ~2025-04-16 | US_ITS ---
EXAMINATION: MM DIAGNOSTIC DIGITAL BREAST TOMOSYNTHESIS, BILATERAL Bilateral Limited ultrasound. CLINICAL INFORMATION: Bilateral breast pain and yellow nipple discharge. COMPARISON: Mammography: Comparison is made with relevant prior exams. TECHNIQUE: Digital breast mammography with tomosynthesis is performed in both the craniocaudal and mediolateral oblique views along with computer-aided detection (CAD). FINDINGS: There are scattered areas of fibroglandular density. Left: [place] marker in the upper outer breast middle depth without underlying abnormal finding at site of patient's pain. No suspicious calcifications masses or other abnormal findings. Targeted color Doppler ultrasound demonstrates a hypoechoic simple cyst at 3:00 1 cm from nipple measuring 13 x 6 x 6 mm. At 3:00 2 cm from the nipple there is a minimally complicated cyst measuring 6 x 5 x 5 mm. At 12:00 1 cm from nipple there is a solid mass versus complicated cyst measuring 10 x 13 x 5 mm. 6 month follow-up ultrasound is recommended. Right: [place] marker in the upper outer breast posterior depth and central inner breast anterior to middle depth at site of patient's pain without underlying abnormal finding. No suspicious calcifications masses or other abnormal findings. Targeted color Doppler ultrasound scanning from 10-2 o'clock and in the areas of patient's pain upper outer and central inner breast demonstrates normal fibroglandular breast tissue. Results are provided to the patient at time of visit by the technologist. US/US Breast BI Limited Mamm Only IMPRESSION: Right: No mammographic or sonographic abnormal finding to account for the patient's yellow nipple discharge and 2 areas of patient's pain. Recommend clinical evaluation and follow-up. Left: 1. No mammographic or sonographic abnormal finding to account for the patient's yellow nipple discharge. Recommend clinical evaluation follow-up. 2. No mammographic or sonographic abnormal finding to account for the patient's upper outer breast pain. Recommend clinical evaluation follow-up. 3. Solid mass versus complicated cyst at 12:00 1 cm from the nipple. Recommend 6 month follow-up ultrasound for further evaluation of stability. 4. Minimally complicated cysts at 3:00. Benign. ASSESSMENT: BI-RADS Category 3: Probably benign RECOMMENDATION: 6 Month F/U This patient's information was entered into a reminder system with a target due date for their next mammogram. Electronically signed by: Ileana Mccormick DO 04/16/2025 03:15 PM EDT RP
--- OUTSIDE RECORDS SUMMARY | 2025-04-16 14:52 | XMS_ITS | Patient Health Record ---
Author Organization [facility] Address [address] [place] [id number] Care Team Providers Care [employer] Technical Director Name Role Phone Rolando Flores [phone] Allergies No Known Allergies Reason For Referral [...] Status W/U Status Risk Notes Problem Prediabetes (511447154) Prediabetes (R73.03) Active confirmed Problem Lumbar radiculopathy (059606378) Lumbar radiculopathy (M54.16) Active confirmed Problem Serum ferritin high (680921939) Elevated ferritin (R79.89) Active confirmed Problem Sinusitis (41771565) Sinusitis (J32.9) Active confirmed Problem Arthralgia (37696362) Arthralgia (M25.50) Active confirmed Problem Herpes genitalis (70863958) Herpes genitalis (A60.00) Active confirmed Plan Of Treatment Pending Test Test Name Order Date MG Diagnostic Mammogram BILATERAL (1950) 07/23/2023 US Breast Complete BILATERAL (1542) 02/2024 Future Test Test Name Order Date Hemoglobin [id number] 02/13/2024 Insulin-[id number] 02/13/2024 Ferritin, Serum-[id number] 02/13/2024 Lipid Panel-[id number] 02/13/2024 CMP14+eGFR (712475) 02/13/2024 CBC 02/13/2024 Insurance Providers Payer Name Payer Address Payer Phone Subscriber Number Group Number Insured Name Patient Relationship to Insured Coverage Start Date Coverage End Date [facility] MED[facility] ADV (PPO) [address] [address] [place] [address] [id number] SANCHEZ OLIVER Self - patient is the insured Medications Administered Medication Instructions Date of Administration Dosage Notes DEPO-Medrol 05/28/2023 40 mg Ketorolac Tromethamine 05/28/2023 30 mg Medical (General) History Medical History History ICD Code arthritis herpes hemorrhoids pre diabetes Surgical History Surgery Date(Month/Year) Hand surgery cholecystectomy hysterectomy
--- OUTSIDE RECORDS SUMMARY | 2025-04-16 14:52 | XMS_ITS | Encounter Summary ---
Author Organization [employer] Address [address] [place] [address] 7[address] [place] [address] Care Team Providers Care Ladle Pourer Name Role Phone Susan Wayne MD Primary Care Provider [phone]- [phone] Manjinder Trejo MD Unavailable [phone] Encounter Details Date Type Department Care Team (Latest Contact Info) Description 01/26/2025 Orders Only [facility] MEDICINE [address] [place] [address] Susan Wayne MD [address] [place] [address] Mixed hypercholesterolemia and hypertriglyceridemia (Primary Dx); Gastroesophageal [...] as of this encounter Plan of Treatment Not on file documented as of this encounter Procedures Procedure [...] 25-Hydroxy, Total, Immunoassay (01/27/2025 8:14 AM EDT) [facility] Vitamin D 25-OH Total 92.2 >30 ng/mL [facility] Comment: Health Based Reference Values*< 20 ng/mL Agnyhlscp20-70 ng/mL Insufficient> 30 ng/mL Sufficient*Devon FIGUEROA. N [...] Wayne MD LAB BLOOD ORDERABLES Final Result [facility] [address] [place] [phone] * (ABNORMAL) CBC auto differential (01/27/2025 8:14 AM EDT) White Blood Count 10.0 4.8 - 10.8 X10*3/uL [facility] Red Blood Count 4.75 4.20 - 5.50 X10*6/uL [facility] Hemoglobin 14.0 12.0 - 16.0 g/dl [facility] Hematocrit 42.6 37.0 - 47.0 % [facility] Mean Corpuscular Volume 89.7 80.0 - 98.0 fL [facility] Mean Corpuscular Hemoglobin 29.5 27.0 - 33.0 pg [facility] Mean Corpuscular HGB Conc 32.9 31.0 - 35.0 g/dl [facility] Red Cell Distribution Width 12.2 11.0 - 16.0 % [facility] Platelet Count 283 160 - 400 X10*3/uL [facility] Mean Platelet Volume 10.3 9.4 - 12.3 fL [facility] Neutrophils Percent Auto 46.1 45 - 73 % [facility] Imm Gran Pct Auto 0.4 0.0 - 0.4 % [facility] Lymphocytes Percent Auto 42.8(H) 20 - 40 % [facility] Monocytes Percent Auto 6.9 2 - 11 % [facility] Eosinophils Percent Auto 3.1 0 - 4 % [facility] Basophils Percent Auto 0.7 0 - 2 % [facility] NRBC Pct Auto 0.0 0.0 - 0.2 /100WBC [facility] Neutrophils Absolute Auto 4.6 2.0 - 8.3 x10*3/uL [facility] Imm Gran Abs Auto 0.04(H) 0.00 - 0.03 X10*3/uL [facility] Lymphocytes Absolute Auto 4.3 1.2 - 4.9 X10*3/uL [facility] Monocytes Absolute Auto 0.7 0.1 - 1.2 X10*3/uL [facility] Eosinophils Absolute Auto 0.3 0.0 - 0.4 X10*3/uL [facility] Basophils Absolute Auto 0.1 0.0 - 0.2 X10*3/uL [facility] NRBC Abs Auto 0.000 0.0 - 0.012 X10*3/uL [facility] Blood Venous blood specimen / Unknown 01/27/2025 8:14 AM EDT 01/27/2025 11:06 AM EDT Susan Wayne MD LAB BLOOD ORDERABLES Final Result Performing Organization Address City/[facility]/ZIP Co de Phone Number [facility] [address] [place] [phone] * (ABNORMAL) Basic Metabolic Panel (01/27/2025 8:14 AM EDT) Sodium 145 135 - 145 mmol/L [facility] Potassium 4.8 3.3 - 5.1 mmol/L [facility] Chloride 108 96 - 108 mmol/L [facility] Carbon Dioxide 29 22 - 29 mmol/L [facility] Anion Gap 13 12 - 20 [facility] Urea Nitrogen (BUN) 21(H) 9 - 16 mg/dL [facility] Creatinine, Serum 0.75 0.5 - 1.4 mg/dL [facility] Estimated Glomerular Filt Rate >60 [facility] Comment:Chronic Kidney Disea se: Estimated GFR < 60 mL/min/[id number] Kidney Disease: Estimated GFR < 15 mL/min/1.73m2 Glucose 120(H) 60 - 115 mg/dL [facility] Calcium 9.4 8.4 - 10.2 mg/dL [facility] Blood Venous blood specimen / Unknown 01/27/2025 8:14 AM EDT 01/27/2025 11:06 AM EDT Susan Wayne MD LAB BLOOD ORDERABLES Final Result [facility] [address] [place] [phone] * (ABNORMAL) Lipid Panel, Standard (01/27/2025 8:14 AM EDT) Triglycerides 147 <150 mg/dL [facility] Comment:Desirable Triglyceri de: less than 150 mg/dLBorderline High Triglyceride 150-199 mg/dLHigh Triglyceride: 200-499 mg/dLVery High Triglyceride: greater than or equal to 5OO mg/dL Cholesterol 202(H) <200 mg/dL [facility] Comment:Desirable Cholestero l: less than 200 mg/dLBorderline High Cholesterol: 200-239 mg/dLHigh Cholesterol: greater than 239 mg/dL LDL Cholesterol Calculated 126(H) <100 mg/dL [facility] Comment:Desirable LDL: less than 100 mg/dLNear Optimal/Above Optimal LDL: 110- 129 mg/dLBorderline High LDL: 130-159 mg/dLHigh LDL: 160-189 mg/dLVery High LDL: greater than or equal to 190 mg/dL HDL Cholesterol 47 >40 mg/dL [facility] Comment:Desirable HDL: great er than 40 mg/dL Note: This HDL assay may give artificially low results in patients with liver disease. Blood Venous blood specimen / Unknown 01/27/2025 8:14 AM EDT 01/27/2025 11:06 AM EDT Susan Wayne MD LAB BLOOD ORDERABLES Final Result [facility] [address] [place] [phone] * (ABNORMAL) Hepatic Function Panel (01/27/2025 8:14 AM EDT) Bilirubin, Total 0.5 0.0 - 1.0 mg/dL [facility] Bilirubin, Direct 0.2 0.0 - 0.5 mg/dL [facility] Aspartate Amino Transferase 31 5 - 31 U/L [facility] Alanine Aminotransferase 46(H) 0 - 31 U/L [facility] Total Protein 6.9 6.5 - 8.0 g/dL [facility] Albumin Level 4.5 3.5 - 5.0 g/dL [facility] Alkaline Phosphatase 71 39 - 117 U/L [facility] Blood Venous blood specimen / Unknown 01/27/2025 8:14 AM EDT 01/27/2025 11:06 AM EDT Susan Wayne MD LAB BLOOD ORDERABLES Final Result [facility] [address] [place] [phone] documented in this encounter Visit Diagnoses Diagnosis Mixed hypercholesterolemia and hypertriglyceridemia- Primary Mixed hyperlipidemia Gastroesophageal reflux disease, unspecified whether esophagitis present Vitamin D deficiency Screening for diabetes mellitus documented in this encounter Care Teams Ladle Pourer Relationship Specialty Start Date End Date Susan Wayne MD [address] [place] [phone] PCP - General Family Medicine 01/26/25 Manjinder Trejo MD [address] [place] [address] [address] [place] [address] Ophthalmology 04/15/25 documented as of this encounter
--- OUTSIDE RECORDS SUMMARY | 2025-04-16 14:52 | XMS_ITS | Encounter Summary ---
Author Organization [facility] Address [address] [place] [address] 7 [place] [address] Care Team Providers Care Register Of Wills Name Role Phone Susan Wayne MD Primary Care Provider [phone] Susan Wayne MD Primary Care Provider +- [phone] Manjinder Trejo MD Unavailable [phone] Encounter Details Date Type Department Care Team (Late st Contact Info) Description 08/22/2023 Orders Only [facility] MEDICINE [address] [place], [place] [phone] Susan Wayne MD [address] [place], [place] [phone] Social History Tobacco Use Types Packs/Day Years [...] on file documented as of this encounter Visit Diagnoses Not on filedocumented in this encounter Care Teams Register Of Wills Relationship Specialty Start Date End Date Susan Wayne MD [address] [place], [place] [phone] PCP - General Family Medicine 07/16/18 04/13/24 Susan Wayne MD [address] [place] [phone] PCP - General Family Medicine 01/26/25 Manjinder Trejo MD [address] [place] [address] [address] [place] [address] Ophthalmology 04/15/25 documented as of this encounter
--- OUTSIDE RECORDS SUMMARY | 2025-04-16 14:53 | XMS_ITS | Clinical Summary ---
Author Organization [employer] Address [address] [place] [address] 7[address] [place] [address] Care Team Providers Care Assistant Softball Coach Name Role Phone Susan Wayne MD Primary Care Provider [phone] Manjinder Trejo MD Unavailable [phone] Allergies No known active allergies Medications acyclovir (Zovirax) 800 MG tabletIndicati ons:Genital herpes simplex, unspecified site TAKE 1 TABLET TWICE A DAY FOR 3 DAYS THEN TAKE 1 TABLET 3 TIMES A DAY FOR 2 DAYS 20 tablet 1 01/28/20 25 Active acyclovir (Zovirax) 800 MG tablet take 1 tablet by oral route 3 times every day for 7 days as needed 01/31/20 025 Discontinued(Me d list cleanup (will not trigger notification to Pharmacy)) cholecalcifero l (Vitamin D-3) 25 MCG (1000 UT) tablet 025 Discontinued fluticasone (Flonase Allergy Relief) 50 MCG/ACT nasal spray Administer 1-2 sprays into affected nostril(s) at bed time. 09/27/19 025 Discontinued(Me d list cleanup (will not trigger notification to Pharmacy)) loratadine (Claritin) 10 MG tablet Take 1 tablet by mouth at bed time. 09/27/19 025 Discontinued(Me d list cleanup (will not trigger notification to Pharmacy)) omeprazole (PriLOSEC) [address] capsule Take 1 capsule by mouth at bed time. 10/13/19 025 Discontinued(Me d list cleanup (will not trigger notification to Pharmacy)) ciclopirox (Penlac) 8 % solutionIndica tions:Onychomy cosis Apply topically at bedtime. 6 mL 01/28/20 25 025 Discontinued(Me d list cleanup (will not trigger notification to Pharmacy)) Active Problems Problem Noted Date Diagnosed Date Prediabetes 04/15/2025 Assessment & Plan (04/15/2025 12:13 PM EDT): Lab Results Component Value Date HGBA1C 6.1 (H) 04/09/2025 GLUCOSE 120 (H) 01/27/2025 -lifestyle modification discussed, she declines metformin Orders: Hemoglobin A1c; Future Cardiac risk counseling 03/21/2024 Overview (04/15/2025): Calculated 04/15/25 The ASCVD Risk score (John COLLAZO, et al., 2019) failed to calculate for the following reasons: Unable to determine if patient is Non- Lab Results Component Value Date LDLCHOL 147 [...] interventions discussed. Colon cancer screening 08/22/2023 Overview (04/15/2025): -Colonoscopy 01/[address] Bassett, next due 10 years. 01/2023, done in [place] 08/2023 Vitamin D deficiency 04/23/2023 04/23/2023 Preventative health care 04/23/2023 Overview (04/15/2025): -next physical exam due after 04/15/26 -eye care facilitated by Dr. Manjinder Trejo of [facility] -dental home is encouraged -health care proxy filed 04/15/25 Assessment & Plan (04/15/2025 12:13 PM EDT): -next physical exam due after 04/15/26 -eye care facilitated by Dr. Manjinder Trejo of [facility] -dental home is encouraged -health care proxy filed 04/15/25 H/O: hysterectomy 09/20/2021 04/23/2023 Hx of herpes genitalis 09/20/2021 3 Mixed hypercholesterolemia and hypertriglyceride tiffanie 06/23/2013 04/23/2023 Overview (04/15/2025): Lab Results Component Value Date CHOL 204 (H) 04/09/2025 CHOL 202 (H) 01/27/2025 TRIG 131 04/09/2025 TRIG 147 01/27/2025 HDL 43 04/09/2025 HDL 47 01/27/2025 LDLCHOLCAL 135 (H) 04/09/2025 LDLCHOLCAL 126 (H) 01/27/2025 -continue lifestyle modification, declines statin, would like to continue lifestyle modification Assessment & Plan (04/15/2025 12:13 PM EDT): Lab Results Component Value Date CHOL 204 (H) 04/09/2025 CHOL 202 (H) 01/27/2025 TRIG 131 04/09/2025 TRIG 147 01/27/2025 HDL 43 04/09/2025 HDL 47 01/27/2025 LDLCHOLCAL 135 (H) 04/09/2025 LDLCHOLCAL 126 (H) 01/27/2025 -continue lifestyle modification, declines statin, would like to continue lifestyle modification Orders: Lipid Panel, Standard; Future Depressive disorder 07/10/2012 04/23/2023 Resolved Problems Problem Noted Date Diagnosed Date Resolved Date Blood glucose elevated 01/28/202504/15 Dyslipidemia 01/28/2025 04/15/2025 Chronic pain of left knee 01/27/2025 Onychomycosis 01/27/2025 04/15/2025 Breast pain 01/27/2025 04/15/2025 Breast nodule 01/27/2025 04/15/2025 Gastroesophageal reflux disease 04/23/2023 04/15/2025 Degenerative joint disease of hand 06/23/2013202204/15/2025 Allergic rhinitis 07/10/2012 04/23/2023 04/15/2025 Eczema 07/10/2012 04/23/2023 04/15/2025 Varicose veins of lower extremity 07/10/2012 023 04/15/2025 Glaucoma 07/10/2012 04/23/2023 04/15/2025 Encounters Date Type Department Care Team Description 04/15/2025 10:30 AM EDT Office Visit [facility] [address] [place] [phone] Susan Wayne MD Mixed hypercholesterolemia and hypertriglyceridemia (Primary Dx); Neck swelling; Prediabetes; Preventative health care; Encounter for immunization; Dietary counseling; Exercise counseling; Overweight; Encounter for hepatitis C screening test for low risk patient 04/15/2025 Travel 04/08/2025 Travel 04/08/2025 Patient Outreach [facility] [address] [place] [phone] Susan Wayne MD Pre-visit Planning ((Unable to reach for PVP screening, LVM) to be completed in office ) 01/28/2025 Results Follow-Up [address] [address] Juliane Sahni MD XR Knee 4+ Views Left 01/28/2025 Results Follow-Up [address] [address] Susan Wayne MD Hepatic Function Panel, Lipid Panel, Standard, Basic Metabolic Panel, Additional followed-up results: 2 01/27/2025 9:20 AM EDT Office Visit [facility] [address] [address] Juliane Sahni MD Genital herpes simplex, unspecified site (Primary Dx); Chronic pain of left knee; Onychomycosis; Breast pain; Breast nodule 01/27/2025 Refill [facility] [address] [place] [address] Juliane Sahni MD Genital herpes simplex, unspecified site 01/27/2025 Travel 01/26/2025 Orders Only [facility] [address] [place] [address] Susan Wayne MD Mixed hypercholesterolemia and hypertriglyceridemia (Primary Dx); Gastroesophageal reflux disease, unspecified whether esophagitis present; Vitamin D deficiency; Screening for diabetes mellitus 01/26/2025 Telephone [facility] [address] [place] [address] Susan Wayne MD 01/20/2025 Telephone [facility] [address] [place] [address] Juliana Crow MD from Last 3 Months Immunizations Immunization Administration Dates Next Due Influenza injectable quadriv alent IIV4 with preservative 04/11/2018 Influenza injectable quadriv alent preservative free 06/03/2021,04/10/2019,05/18/2016,04/07 Influenza, High Dose Seasona l, Preservative Free 04/15/2025 Influenza, IIV3, injectable 04/13/2014, 1 Influenza, Split (incl. leo fied surface antigen) 06/23/2013,07/10/2012 Fish SARS-CoV-2 Vaccination 04/27/2021 Pneumococcal Conjugate PCV 20 04/15/2025 Pneumococcal Polysaccharide PPSV23 06/03/2021 TD (adult), 2 Lf tetanus tox oid, preservative free, adsorbed 01/24/2001 Tdap 04/15/2025,10/12/2014 Zoster, Recombinant 06/07/2021 Family History Medical History Relation Name Comments Alzheimer's disease Mother Relation Name Status Comments Mother Social History Tobacco Use Types Packs/Day Years [...] Mass Index 30.69 04/15/2025 10:23 AM EDT Plan of Treatment Health Maintenance Due Date Last Done Comments CT Colonography 1955 FIT DNA/Cologuard 1955 FIT 1955 FOBT 1955 Sigmoidoscopy 1955 Hepatitis C Screening 1974 Zoster Vaccines (2 of 2) 08/02/2021 06/07/2021 Mammogram 09/02/2022 09/02/2021, 08/16, 09/02/2021, Additional history exists Diabetes: Hemoglobin A1C 04/09/2026 04/09/2025 Alcohol/Substance Use Screening 04/15/2026 04/15/2025 COVID-19 Vaccine ( season) 2026 04/27/2021 Postponed from 03/16/2025 (Patient Refused) Depression Screening 04/15/2026 04/15/2025, 04/15/20 SDOH Screening 04/15/2026 04/15/2025 Tobacco Screening 04/15/2026 04/15/2025 RSV Patients and Patients Aged 60 years or older (1 - 1-dose 75+ series) 2031 Colonoscopy 09/06/2033 01/13/2013 Colorectal Cancer Screening 09/06/2033 DTaP/Tdap/Td Vaccines (3 - Td or Tdap) 04/15/2035 04/15/2025, 10/12/2014, 01/24/2001 Influenza Vaccine Completed 04/15/2025, , 04/10/2019, Additional history exists Pneumococcal Vaccine: 50+ Years Completed 04/15/2025, 06/03/2021 HIB Vaccines Aged Out No longer eligi [...] Procedure Name Priority Date/Time Associated Diagnosis Comments LIPID PANEL, STANDARD Routine 04/09/2025 8:56 AM EDT Dyslipidemia HEMOGLOBIN A1C Routine 04/09/2025 8:56 AM EDT Blood glucose elevated XR KNEE 4+ VIEWS LEFT Routine 01/27/2025 [...] 8:14 AM EDT Mixed hypercholesterolemia and hypertriglyceridemia HM MAMMOGRAPHY Routine 09/02/2021 COLONOSCOPY Routine 01/13/2013 from Last 3 Months or Most Recently Relevant to Health Maintenance Results * (ABNORMAL) Hemoglobin A1c (04/09/2025 8:56 AM EDT) Hemoglobin A1c 6.1(H) <6.0 % [facility] Comment:Hemoglobin A1C Refer ence Range Adults: 4.8 - 6.0 % Non diabetic: < 6.0 % Goal: < 7.0 %Additional Action Suggested: > 8.0 %Note: Hemoglobin A1c results are invalid for patients with abnormal amounts of HbF. Blood transfusions may impact the HbA1c concentration in the patient sample. Estimated Average Glucose 128 mg/dL [facility] Comment:eAG = Estimated ave rage glucose which is %A1C expressed asaverage glucose, using the formula of the M5P-KqtnqkzNziafkn Glucose study (ADAG), Diabetes Care, Vol.31,#8,Feb. 2007 Blood Venous blood specimen / Unknown 04/09/2025 8:56 AM EDT 04/09/2025 11:11 AM EDT us Susan Wayne MD LAB BLOOD ORDERABLES Final Result [facility] [address] [place] [address] [phone] * (ABNORMAL) Lipid Panel, Standard (04/09/2025 8:56 AM EDT) Only the most recent of2 resultswithin the time period is included. Triglycerides 131 <150 mg/dL [facility] Comment:Desirable Triglyceri de: less than 150 mg/dLBorderline High Triglyceride 150-199 mg/dLHigh Triglyceride: 200-499 mg/dLVery High Triglyceride: greater than or equal to 5OO mg/dL Cholesterol 204(H) <200 mg/dL [facility] Comment:Desirable Cholestero l: less than 200 mg/dLBorderline High Cholesterol: 200-239 mg/dLHigh Cholesterol: greater than 239 mg/dL LDL Cholesterol Calculated 135(H) <100 mg/dL [facility] Comment:Desirable LDL: less than 100 mg/dLNear Optimal/Above Optimal LDL: 110- 129 mg/dLBorderline High LDL: 130-159 mg/dLHigh LDL: 160-189 mg/dLVery High LDL: greater than or equal to 190 mg/dL HDL Cholesterol 43 >40 mg/dL [facility] Comment:Desirable HDL: great er than 40 mg/dL Note: This HDL assay may give artificially low results in patients with liver disease. Blood Venous blood specimen / Unknown 04/09/2025 8:56 AM EDT 04/09/2025 10:57 AM EDT us Susan Wayne MD LAB BLOOD ORDERABLES Final Result [facility] [address] [place] [phone] * XR Knee 4+ Views Left (01/27/2025 10:05 AM EDT) Anatomical Region Laterality Modality Lower Extremities, Knee Left Radiogra phic Imaging 01/27/2025 10:0 5 AM EDT Narrative 01/27/2025 11:46 AM EDT [address] [address] XRay Report Signed Patient: Bassem Flood MR#: [id number] 37 : 1955 Acct:[id number] Age/Sex: 69 / F ADM Date: 01/27/25 Loc: .[facility] Attending Dr: Susan Wayne MD Ordering Physician: Juliane Sahni MD Date of Service: 01/27/25 Procedure(s): XR knee LT 4V Accession Number(s): [id number] cc: Juliane Sahni MD; Susan Wayne MD [...] Matty Zacarias MD 01/27/2025 11:43 AM EDT Dictated By: Matty Zacarias MD Signed By: <Electronically signed by Matty Zacarias MD in OV> 01/27/25 1143 DD/ 1005 TD/TT: 01/27/25 1020 Assistant Real Estate Manager: Procedure Note Donotuseinterpreter, Image - 01/27/[address] [address] XRay Report Signed Patient: Frantz FloodR#: [id number] 37 : 6Acct:[id number] Age/Sex: 69 / FADM Date: 01/27/25 Loc: [facility] Attending Dr: Susan Wayne MD Ordering Physician: Juliane Sahni MD Date of Service: 01/27/25 Procedure(s): XR knee LT 4V Accession Number(s): [id number] cc: Juliane Sahni MD; Susan Wayne MD [...] 01/27/25 1143 DD/ 1005 TD/TT: 01/27/25 1020 Assistant Real Estate Manager: Juliane Kiser MD IMG XR PROCEDURES Fin al Result * Vitamin D, 25-Hydroxy, Total, Immunoassay (01/27/2025 8:14 AM EDT) Vitamin D 25-OH Total 92.2 >30 ng/mL [facility] Comment: Health Based Reference Values*< 20 ng/mL Bisdbtwcp55-30 ng/mL Insufficient> 30 ng/mL Sufficient*Devon FIGUEROA. N [...] Wayne MD LAB BLOOD ORDERABLES Final Result [facility] [address] [place] [address] [phone] * (ABNORMAL) CBC auto differential (01/27/2025 8:14 AM EDT) White Blood Count 10.0 4.8 - 10.8 X10*3/uL [facility] Red Blood Count 4.75 4.20 - 5.50 X10*6/uL [facility] Hemoglobin 14.0 12.0 - 16.0 g/dl [facility] Hematocrit 42.6 37.0 - 47.0 % [facility] Mean Corpuscular Volume 89.7 80.0 - 98.0 fL [facility] Mean Corpuscular Hemoglobin 29.5 27.0 - 33.0 pg [facility] Mean Corpuscular HGB Conc 32.9 31.0 - 35.0 g/dl [facility] Red Cell Distribution Width 12.2 11.0 - 16.0 % [facility] Platelet Count 283 160 - 400 X10*3/uL [facility] Mean Platelet Volume 10.3 9.4 - 12.3 fL [facility] Neutrophils Percent Auto 46.1 45 - 73 % [facility] Imm Gran Pct Auto 0.4 0.0 - 0.4 % [facility] Lymphocytes Percent Auto 42.8(H) 20 - 40 % [facility] Monocytes Percent Auto 6.9 2 - 11 % [facility] Eosinophils Percent Auto 3.1 0 - 4 % [facility] Basophils Percent Auto 0.7 0 - 2 % [facility] NRBC Pct Auto 0.0 0.0 - 0.2 /100WBC [facility] Neutrophils Absolute Auto 4.6 2.0 - 8.3 x10*3/uL [facility] Imm Gran Abs Auto 0.04(H) 0.00 - 0.03 X10*3/uL [facility] Lymphocytes Absolute Auto 4.3 1.2 - 4.9 X10*3/uL [facility] Monocytes Absolute Auto 0.7 0.1 - 1.2 X10*3/uL [facility] Eosinophils Absolute Auto 0.3 0.0 - 0.4 X10*3/uL [facility] Basophils Absolute Auto 0.1 0.0 - 0.2 X10*3/uL [facility] NRBC Abs Auto 0.000 0.0 - 0.012 X10*3/uL [facility] Blood Venous blood specimen / Unknown 01/27/2025 8:14 AM EDT 01/27/2025 11:06 AM EDT us Susan Wayne MD LAB BLOOD ORDERABLES Final Result [facility] [address] [place] [phone] [phone] * (ABNORMAL) Hepatic Function Panel (01/27/2025 8:14 AM EDT) Bilirubin, Total 0.5 0.0 - 1.0 mg/dL [facility] Bilirubin, Direct 0.2 0.0 - 0.5 mg/dL [facility] Aspartate Amino Transferase 31 5 - 31 U/L [facility] Alanine Aminotransferase 46(H) 0 - 31 U/L [facility] Total Protein 6.9 6.5 - 8.0 g/dL [facility] Albumin Level 4.5 3.5 - 5.0 g/dL [facility] Alkaline Phosphatase 71 39 - 117 U/L [facility] Blood Venous blood specimen / Unknown 01/27/2025 8:14 AM EDT 01/27/2025 11:06 AM EDT Susan Wayne MD LAB BLOOD ORDERABLES Final Result Performing Organization Address City/[facility]/ZIP Co de Phone Number [facility] [address] [place] [address] [phone] * (ABNORMAL) Basic Metabolic Panel (01/27/2025 8:14 AM EDT) Sodium 145 135 - 145 mmol/L [facility] Potassium 4.8 3.3 - 5.1 mmol/L [facility] Chloride 108 96 - 108 mmol/L [facility] Carbon Dioxide 29 22 - 29 mmol/L [facility] Anion Gap 13 12 - 20 [facility] Urea Nitrogen (BUN) 21(H) 9 - 16 mg/dL [facility] Creatinine, Serum 0.75 0.5 - 1.4 mg/dL [facility] Estimated Glomerular Filt Rate >60 [facility] Comment:Chronic Kidney Disea se: Estimated GFR < 60 mL/min/1.53k3Ijamto Kidney Disease: Estimated GFR < 15 mL/min/1.73m2 Glucose 120(H) 60 - 115 mg/dL [facility] Calcium 9.4 8.4 - 10.2 mg/dL [facility] Blood Venous blood specimen / Unknown 01/27/2025 8:14 AM EDT 01/27/2025 11:06 AM EDT Susan Wayne MD LAB BLOOD ORDERABLES Final Result Performing Organization Address City/[facility]/ZIP Co de Phone Number [facility] [address] [place] [address] [phone] * Hm Mammography (09/02/2021) Mammogram abnormal Anatomical Region Laterality Modality Other us Historical Provider HEALTH MAINTENANCE Final Result * Colonoscopy (01/13/2013) Colonoscopy Dr. 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
--- OUTSIDE RECORDS SUMMARY | 2025-04-16 14:53 | XMS_ITS | Encounter Summary ---
Author Organization [employer] Address [address] [facility] [address] [place] [address] Care Team Providers Care Process Improvement Specialist Name Role Phone Susan Wayne MD Primary Care Provider [phone] Manjinder Trejo MD Unavailable [phone] Encounter Details Date Type Department Care Team (Latest Contact Info) Description 04/15/2025 Travel Social History Tobacco Use Types Packs/Day [...] AM EDT documented as of this encounter Functional Status * Over the past 2 weeks, how often have you been bothered by any of the following problems? Question Answer Date of Assessment Author Patient Health Questionnaire-2 Score 0 07/2024 11:10 AM Echo De Dios [place] * Little interest or pleasure in [...] Dios MA documented as of this encounter Plan of Treatment Not on file documented as of this encounter Visit Diagnoses Not on filedocumented in this encounter Additional Health Concerns Assessment Noted Time PHQ-9 Depression Total Score: 2 04/15/20 11:10 AM EDT documented as of this encounter Care Teams Process Improvement Specialist Relationship Specialty Start Date End Date Susan Wayne MD [address] [place] [phone] PCP - General Family Medicine 01/26/25 Manjinder Trejo MD [address] [place] [address] [address] [place] [address] Ophthalmology 04/15/25 documented as of this encounter
--- OUTSIDE RECORDS SUMMARY | 2025-04-16 14:53 | XMS_ITS | Patient Health Record ---
Author Organization [facility] Address [address] [place] [address] Care Team Providers Care Superior Court Judge Name Role Phone Susan Wayne MD Primary [...] Status Risk Notes Problem Irritable bowel syndrome (85370445) Irritable bowel syndrome (564.1) Active confirmed Problem Colon cancer screening (799010801) Colon cancer screening (V76.51) Active confirmed Plan Of Treatment Future Test Test Name Order Date COLONOSCOPY 09/20/2012 Insurance Providers Payer Name Payer Address Payer Phone Subscriber Number Group Number Insured Name Patient Relationship to Insured Coverage Start Date Coverage End Date [facility] [address] [place] [phone] [id number] SANCHEZ OLIVER Self - patient is the insured Medical (General) History Medical History History ICD Code Denies ND,DM,CVA,Lung disease,renal dise ase glaucoma varicose veins in lower extremity allergic rhinitis eczematous dermatitis Surgical History Surgery Date(Month/Year) hysterectomy ? gallbladder hand surgery
== END 2025-04-16 13:25 | disposition home or self-care (01) ==
LOC: HO.MAMMO 13:24
PROVIDERS: PCP Internal Medicine; Visit Provider Internal Medicine
DX: N64.4 Mastodynia (principal); N63.13 Unspecified lump in the right breast, lower outer quadrant; N63.21 Unspecified lump in the left breast, upper outer quadrant
CPT/HCPCS: 76642; 77062; 77066

== ENCOUNTER → 2025-04-16 13:30 | Outpatient (BNV) | payer MEDICARE, SELFPAY | PROVIDERS: PCP Internal Medicine; Visit Provider Internal Medicine | DX: N63.22 Unspecified lump in the left breast, upper inner quadrant (principal); N64.4 Mastodynia | CPT/HCPCS: 76642; 77066; G0279 ==

== ENCOUNTER 2025-04-21 11:43 | Outpatient (REF) | payer MEDICARE, SELFPAY ==
--- OUTSIDE RECORDS SUMMARY | 2025-01-22 08:29 | XMS_ITS | Continuity of Care Document ---
Author Organization [facility] Address [address] [place] [address] Phone Care Team Providers Care Investments Manager Name Role Phone No Information Unavailable Unavailable [...] the affected area(s) 2.00 gram - Active [place] 230 mg-70 mg topical patch Apply to [...] Diagnoses Date Provider Providers Copied on Encounter [facility], [address] [place] [address], [id number], tel:[phone] No Information 5 No Information [facility], [address] [place] [address], [id number], [place] tel:[phone] [facility] No Information 3 [facility]. [address] [place] [address], [id number], . tel:[phone] Office/outpa tient visit,[facility], [address] [place] [address], [id number], [place] tel:[phone] [facility] Follow Up of hyperlipidemi a (chief complaint)frandy k pain (chief complaint)All ergies (chief complaint) Body mass index [BMI] 28.0-28.9, adultBack painOther muscle spasmMixed hyperlipidemi aOther seasonal allergic rhinitisOther spondylosis, lumbar region 3 [facility]. [address] [place] [address], [id number], . tel:[phone] Office/outpa tient visit,[facility], [address] [place] [address], [id number], [place] tel:[phone] [facility] back pain (chief complaint) Body mass index [BMI] 28.0-28.9, adultBack pain 3 No Information Office/outpa tient visit,[facility], [address] [place] [address], [id number], [place] tel:[phone] [facility] hyperlipidemi a (chief complaint)col onoscopy (chief complaint) Mixed hyperlipidemi aEncounter for screening for Ca of colonOth abn and inconclusive findings on dx imaging of breast 3 [facility]. [address] [place] [address], [id number], [place]. tel:[phone] Preventive checkup, new,65+ yrs [facility], [address] [place] [address], [id number], [place] tel:[phone] [facility] Established care (chief complaint)Her pes (chief complaint)Art [...] findings on dx imaging of breast 3 [facility]. [address] [place] [address], [id number], [place]. tel:[phone] Family History Family Member Type Diagnosis Age At Onset Mother Problem Hypertension Father Problem Hypertension Payers Payer name Insurance type Covered republican ID Authoriza tion(s) No Information Social History [...] Radiology Order MG Screening Mammogram CAD BILATERAL ([id number]), Sent on: Sent Future Order: Radiology Order MG Diagnostic Mammogram CAD BILATERAL ([id number]), Sent on: Sent Future Order: Radiology Order MG Diagnostic Mammogram CAD BILATERAL ([id number]), Collected on: , Sent on: Sent Nutrition [...] changes or added fish oil to diet. [facility] Herpes has history of h erpes. Currently [...] Ot her spondylosis, lumbar region 1. Discussed hyperli pidemia etiology and treatment [...] months. Related to Mixed hyperlipidemia 1. Discussed seasona l allergies etiology and treatment plan.2. Patient to take allergy medication as directed.3. Discussed lessoning the exposure to the allergens that cause symptoms. 4. Refills addressed.5. RTC if symptoms worsen or do not improve. Related to Other seasonal allergic rhinitis 1. Discussed muscle spasm etiology and treatment plan.2. Patient to apply warm moist pad to affected area TID prn muscle spasms.3. Take muscle relaxants as directed.4. Recommend gentle stretching exercises, warm oil massage to affected area, lumbar support.5. F/u in 1 week or sooner if symptoms worsen or do not improve. Related to Other muscle spasm 1. Discussed back pa in possible causes [...] to Body mass index [BMI] 28.0-28.9, adult repeat mammogram in 2022 - Related to Oth abn and inconclusive findings on dx imaging of breast Discussed with betsey fink Colonoscopy Elizabeth refer to gastro for to schedule colonoscopy. Related to Encounter for screening for Ca of colon 1. Discussed hyperli pidemia etiology and treatment [...] in 3 months. Related to Mixed hyperlipidemia need medical records. Related to Oth abn and inconclusive findings on dx imaging of breast referral needed. Related to Glau coma labs pending Related to Encou nter for screening for hyperlipidemia labs pending Related to Encou nter for screening for other suspected endocrine disorder mammogram ordered Related to Enc ounter for screening mammogram for malignant neoplasm of breast 1. Discussed etiolog y and treatment plan.2. [...] f/u in 3 months. Related to Arthritis labs pending Related to Encou nter for screening for diabetes mellitus 1. Discussed lab res ults positive for [...] F/u prn. Related to Herpesviral infection, unspecified 1. Discussed with johnna rodriguez preventive - [...]
--- OUTSIDE RECORDS SUMMARY | 2025-04-21 13:40 | XMS_ITS | Encounter Summary ---
Author Organization [employer] Address [address] [facility] [address] [place] [address] Care Team Providers Care Tire Adjuster Name Role Phone Susan Wayne MD Primary Care Provider [phone] Manjinder Trejo MD Unavailable [phone] Reason for Referral * Consultation (Routine) - Pending Review Specialty Diagnoses / Procedures Referred By Angie spears Referred To Contact Vascular Surgery Diagnoses Varicose veins of both lower extremities with pain Juliane Sahni MD [address] [place] [id number] Phone: tel: fax: Referral ID Status Reason Start Date Expiration Date Visits Requested Visits Authorized [id number] Pending Review Specialty Services Required 04/21/2025 04/21/2026 1 1 Reason for Visit * Reason Comments Allergic Reaction Patient reports was vaccinated on Sunday ( 2 vaccines on left arm). Reports itchiness started the weekend, now has redness and swelling. Encounter Details Date Type Department Care Team (Late st Contact Info) Description 04/21/2025 1:40 PM EDT Office Visit [facility] [address] [place] [address] Allergic reaction, initial encounter (Primary Dx); Varicose veins of both lower extremities with pain Social History Tobacco Use Types Packs/Day Years [...] Sign Reading Time Taken Comments Blood Pressure 122/70 04/21/2025 1:33 PM EDT Pulse 64 04/21/2025 1:33 PM EDT Temperature 36.3 C (97.3 F) 04/21/2025 1:33 PM EDT Respiratory Rate 16 04/21/2025 1:33 PM EDT Oxygen Saturation - - Inhaled Oxygen Concentration - - Weight 81.1 kg (178 lb 12.8 oz) 04/21/2025 1:33 PM EDT Height - - Body Mass Index 30.69 04/15/2025 10:23 AM EDT documented in this encounter Plan of Treatment Scheduled Referrals Name Type Priority Associated Diagnoses Orde r Schedule Referral to Vascular Surgery Outpatient Referral Routine Varicose veins of both lower extremities with pain Expected: 04/21/2025 (Approximate), Expires: 04/21/2026 documented as of this encounter Visit Diagnoses Diagnosis Allergic reaction, initial encounter- Primary Varicose veins of both lower extremities with pain documented in this encounter Additional Health Concerns Assessment Noted Time PHQ-9 Depression Total Score: 2 04/15/20 11:10 AM EDT documented as of this encounter Care Teams Tire Adjuster Relationship Specialty Start Date End Date Susan Wayne MD [address] [place] [id number] PCP - General Family Medicine 01/26/25 Manjinder Trejo MD [address] [place] [address] [address] [place] [address] Ophthalmology 04/15/25 documented as of this encounter
--- OUTSIDE RECORDS SUMMARY | 2025-04-21 14:48 | XMS_ITS | Clinical Summary ---
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 30 tablet 04/21/20 25 025 Active predniSONE (Deltasone) 20 MG tabletIndicati ons:Allergic reaction, initial encounter Take 2 tablets (40 mg) by mouth Once per day for 5 days. 10 tablet 04/21/20 25 025 Active acyclovir (Zovirax) 800 MG tablet take 1 tablet by oral route 3 times every day for 7 days as needed 01/31/20 22 025 Discontinued(Me d list cleanup (will not trigger notification to Pharmacy)) cholecalcifero l (Vitamin D-3) 25 MCG (1000 UT) tablet 025 Discontinued fluticasone (Flonase Allergy Relief) 50 MCG/ACT nasal spray Administer 1-2 sprays into affected nostril(s) at bed time. 09/27/19 20 025 Discontinued(Me d list cleanup (will not trigger notification to Pharmacy)) loratadine (Claritin) 10 MG tablet Take 1 tablet by mouth at bed time. 09/27/19 20 025 Discontinued(Me d list cleanup (will not trigger notification to Pharmacy)) omeprazole (PriLOSEC) [address] capsule Take 1 capsule by mouth at bed time. 10/13/19 22 025 Discontinued(Me d list cleanup (will not trigger notification to Pharmacy)) ciclopirox (Penlac) 8 % solutionIndica tions:Onychomy cosis Apply topically at bedtime. 6 mL 01/28/20 25 025 Discontinued(Me d list cleanup (will not trigger notification to Pharmacy)) Active Problems Problem Noted Date Diagnosed Date Allergic reaction 04/21/2025 Varicose veins of both lower extremities with pa in 04/21/2025 Prediabetes 04/15/2025 Assessment & Plan (04/15/2025 12:13 [...] next due 10 years. 01/2023, done in [place] 08/2023 Vitamin D deficiency 04/23/2023 04/23/2023 Preventative health care 04/23/2023 Overview (04/15/2025): -next physical exam due after 04/15/26 -eye care facilitated by Dr. Manjinder Trejo of [facility] -dental home is encouraged -health care proxy filed 04/15/25 Assessment & Plan (04/15/2025 12:13 PM EDT): -next physical exam due after 04/15/26 -eye care facilitated by Dr. Manjinder Trejo of [facility] -dental home is encouraged -health care [...] Encounters Date Type Department Care Team Description 04/21/2025 1:40 PM EDT Office Visit [facility] [address] [place] [phone] Allergic reaction, initial encounter (Primary Dx); Varicose veins of both lower extremities with pain 04/21/2025 Travel 04/15/2025 10:30 AM EDT Office Visit [facility] [address] [place] [phone] Susan Wayne MD Mixed hypercholesterolemia and hypertriglyceridemia (Primary Dx); Neck swelling; Prediabetes; Preventative health care; Encounter for immunization; Dietary counseling; Exercise counseling; Overweight; Encounter for hepatitis C screening test for low risk patient 04/15/2025 Travel 04/08/2025 Travel 04/08/[address] [facility] [address] [place] [phone] Susan Wayne MD Pre-visit Planning ((Unable to reach for PVP screening, LVM) to be completed in office ) 01/28/2025 Results Follow-Up [facility] [address] [place] [phone] Juliane Sahni MD XR Knee 4+ Views Left 01/28/2025 Results Follow-Up [address] [address] Susan Wayne MD Hepatic Function Panel, Lipid Panel, Standard, Basic Metabolic Panel, Additional followed-up results: 2 01/27/2025 9:20 AM EDT Office Visit [facility] [address] [place] [phone] Juliane Sahni MD Genital herpes simplex, unspecified site (Primary Dx); Chronic pain of left knee; Onychomycosis; Breast pain; Breast nodule 01/27/[address] [facility] [address] [place] [phone] Juliane Sahni MD Genital herpes simplex, unspecified site 01/27/2025 Travel 01/26/2025 Orders Only [address] [address] Susan Wayne MD Mixed hypercholesterolemia and hypertriglyceridemia (Primary Dx); Gastroesophageal reflux disease, unspecified whether esophagitis present; Vitamin D deficiency; Screening for diabetes mellitus 01/26/[address] [facility] [address] [place] [phone] Susan Wayne MD 01/20/[address] [facility] [address] [place] [phone] Juliana Crow MD from Last 3 Months [...] your housing situation today? I have rajiv jorge 04/15/[address] you li [...] 16 04/21/2025 1:33 PM EDT Oxygen Saturation 96% 04/15/2025 10: 23 AM EDT Inhaled Oxygen Concentration - - Weight 81.1 kg (178 lb 12.8 oz) 04/21/2025 1:33 PM EDT Height 162.6 cm (5' 4 ) 04/15/2025 10:2 3 AM EDT Body Mass Index 30.69 04/15/2025 10:23 AM EDT Plan of Treatment Health Maintenance Due Date Last Done Comments CT Colonography 1955 FIT DNA/Cologuard 1955 FIT 1955 FOBT 1955 Sigmoidoscopy 1955 Hepatitis C Screening 1974 Zoster Vaccines (2 of 2) 08/02/2021 06/07/2021 Diabetes: Hemoglobin A1C 04/09/2026 04/09/2025 Alcohol/Substance Use Screening 04/15/2026 04/15/2025 COVID-19 Vaccine ( season) 2026 04/27/2021 Postponed from 03/16/2025 (Patient Refused) Depression Screening 04/15/2026 04/15/2025, 04/15/20 25 SDOH Screening 04/15/2026 04/15/2025 Tobacco Screening 04/15/2026 04/15/2025 Mammogram 04/16/2026 04/16/2025, 08/2024, 09/02/2021, Additional history exists RSV Patients and Patients [...] Procedure Name Priority Date/Time Associated Diagnosis Comments TSH W/REFLEX TO FT4 Routine 04/21/2025 11:55 AM EDT Neck swelling BI US BREAST LIMITED BILATERAL Routine 04/16/2025 2:11 PM EDT BI MAMMOGRAM DIAGNOSTIC TOMOSYNTHESIS BILATERAL Routine 04/16/2025 1:45 PM EDT Breast pain Breast nodule LIPID PANEL, STANDARD Routine 04/09/2025 8:56 AM [...] AM EDT Mixed hypercholesterolemia and hypertriglyceridemia HM COLONOSCOPY Routine 01/13/2013 from Last 3 Months or Most Recently Relevant to Health Maintenance Results * TSH W/Reflex to FT4 (04/21/2025 11:55 AM EDT) TSH reflex Free T4 2.16 0.32 - 4.0 uIU/mL [facility] Blood Venous blood specimen / Unknown 04/21/2025 11:55 AM EDT 04/21/2025 1:30 PM EDT us Susan Wayne MD LAB BLOOD ORDERABLES Final Result [facility] [address] [place] [address] [phone] * BI US Breast Limited Bilateral (04/16/2025 2:11 PM EDT) Anatomical Region Laterality Modality Breast Bilateral Ultrasound 04/16/2025 2:11 PM EDT Narrative 04/16/2025 3:18 PM EDT [facility] [address] [place] [address] [place] [address] Ultrasound Report Signed Patient: Bassem Flood MR#: [id number] [birth year] : 1955 Acct:[id number] Age/Sex: 69 / F ADM Date: 04/16/25 Loc: HO.MAMMO Attending Dr: Juliane Kiser MD Ordering Physician: Juliane Sahni MD Date of Service: 04/16/25 Procedure(s): US Breast BI Limited Mamm Only Accession Number(s): [id number] cc: Juliane Sahni MD Reason for Exam: BILAT BR PAIN EXAMINATION: MM DIAGNOSTIC DIGITAL BREAST TOMOSYNTHESIS, BILATERAL Bilateral Limited ultrasound. CLINICAL INFORMATION: Bilateral breast pain and yellow nipple discharge. COMPARISON: Mammography: Comparison is made with relevant prior exams. TECHNIQUE: Digital breast mammography with tomosynthesis is performed in both the craniocaudal and mediolateral oblique views along with computer-aided detection (CAD). FINDINGS: There are scattered areas of fibroglandular density. Left: [place]field marker in the upper outer breast middle depth without underlying abnormal finding at site of patient's pain. No suspicious calcifications masses or other abnormal findings. Targeted color Doppler ultrasound demonstrates a hypoechoic simple cyst at 3:00 1 cm from nipple measuring 13 x 6 x 6 mm. At 3:00 2 cm from the nipple there is a minimally complicated cyst measuring 6 x 5 x 5 mm. At 12:00 1 cm from nipple there is a solid mass versus complicated cyst measuring 10 x 13 x 5 mm. 6 month follow-up ultrasound is recommended. Right: [place]field marker in the upper outer breast posterior depth and central inner breast anterior to middle depth at site of patient's pain without underlying abnormal finding. No suspicious calcifications masses or other abnormal findings. Targeted color Doppler ultrasound scanning from 10-2 o'clock and in the areas of patient's pain upper outer and central inner breast demonstrates normal fibroglandular breast tissue. Results are provided to the patient at time of visit by the technologist. US/US Breast BI Limited Mamm Only IMPRESSION: Right: No mammographic or sonographic abnormal finding to account for the patient's yellow nipple discharge and 2 areas of patient's pain. Recommend clinical evaluation and follow-up. Left: 1. No mammographic or sonographic abnormal finding to account for the patient's yellow nipple discharge. Recommend clinical evaluation follow-up. 2. No mammographic or sonographic abnormal finding to account for the patient's upper outer breast pain. Recommend clinical evaluation follow-up. 3. Solid mass versus complicated cyst at 12:00 1 cm from the nipple. Recommend 6 month follow-up ultrasound for further evaluation of stability. 4. Minimally complicated cysts at 3:00. Benign. ASSESSMENT: BI-RADS Category 3: Probably benign RECOMMENDATION: 6 Month F/U This patient's information was entered into a reminder system with a target due date for their next mammogram. Electronically signed by: Ileana Mccormick DO 04/16/2025 03:15 PM EDT RP Dictated By: Ileana Mccormick DO Signed By: <Electronically signed by Ileana Mccormick DO in OV> 04/16/25 1515 DD/ 1411 TD/TT: 04/16/25 1442 Outreach Consultant: Procedure Note Donotuseinterpreter, Image - 04/16/2025 [facility] [address] [place] [address] Ultrasound Report Signed Patient: Leslie Flood#: [id number] [birth year] : 1955cct:[id number] Age/Sex: 69 / FADM Date: 04/16/25 Loc: HO.MAMMO Attending Dr: Juliane Kiser MD Ordering Physician: Juliane Sahni MD Date of Service: 04/16/25 Procedure(s): US Breast BI Limited Mamm Only Accession Number(s): [id number] cc: Juliane Sahni MD Reason for Exam: BILAT BR PAIN EXAMINATION: MM DIAGNOSTIC DIGITAL BREAST TOMOSYNTHESIS, BILATERAL Bilateral Limited ultrasound. CLINICAL INFORMATION: Bilateral breast pain and yellow nipple discharge. COMPARISON: Mammography: Comparison is made with relevant prior exams. TECHNIQUE: Digital breast mammography with tomosynthesis is performed in both the craniocaudal and mediolateral oblique views along with computer-aided detection (CAD). FINDINGS: There are scattered areas of fibroglandular density. Left: [place]field marker in the upper outer breast middle depth without underlying abnormal finding at site of patient's pain. No suspicious calcifications masses or other abnormal findings. Targeted color Doppler ultrasound demonstrates a hypoechoic simple cyst at 3:00 1 cm from nipple measuring 13 x 6 x 6 mm. At 3:00 2 cm from the nipple there is a minimally complicated cyst measuring 6 x 5 x 5 mm. At 12:00 1 cm from nipple there is a solid mass versus complicated cyst measuring 10 x 13 x 5 mm. 6 month follow-up ultrasound is recommended. Right: [place]field marker in the upper outer breast posterior depth and central inner breast anterior to middle depth at site of patient's pain without underlying abnormal finding. No suspicious calcifications masses or other abnormal findings. Targeted color Doppler ultrasound scanning from 10-2 o'clock and in the areas of patient's pain upper outer and central inner breast demonstrates normal fibroglandular breast tissue. Results are provided to the patient at time of visit by the technologist. US/US Breast BI Limited Mamm Only IMPRESSION: Right: No mammographic or sonographic abnormal finding to account for the patient's yellow nipple discharge and 2 areas of patient's pain. Recommend clinical evaluation and follow-up. Left: 1. No mammographic or sonographic abnormal finding to account for the patient's yellow nipple discharge. Recommend clinical evaluation follow-up. 2. No mammographic or sonographic abnormal finding to account for the patient's upper outer breast pain. Recommend clinical evaluation follow-up. 3. Solid mass versus complicated cyst at 12:00 1 cm from the nipple. Recommend 6 month follow-up ultrasound for further evaluation of stability. 4. Minimally complicated cysts at 3:00. Benign. ASSESSMENT: BI-RADS Category 3: Probably benign RECOMMENDATION: 6 Month F/U This patient's information was entered into a reminder system with a target due date for their next mammogram. Electronically signed by: Ileana Mccormick DO 04/16/2025 03:15 PM EDT Dictated By: Ileana Mccormick DO Signed By: <Electronically signed by Ileana Mccormick DO in OV> 04/16/25 1515 DD/ 1411 TD/TT: 04/16/25 1442 Outreach Consultant: us Juliane Kiser MD IMG US PROCEDURES Saeid calderon Result - Final * BI Mammogram Diagnostic Tomosynthesis Bilateral (04/16/2025 1:45 PM EDT) Anatomical Region Laterality Modality Breast Bilateral Mammography 04/16/2025 1:45 PM EDT Narrative 04/16/2025 3:18 PM EDT [facility] [address] [place], [place] [address] Mammography Report Signed Patient: Bassem Flood MR#: [id number] 37 : 1955 Acct:[id number] Age/Sex: 69 / F ADM Date: 04/16/25 Loc: HO.MAMMO Attending Dr: Juliane Kiser MD Ordering Physician: Juliane Sahni MD Results: 3Probably Benign Date of Service: 04/16/25 Follow Up: 6 Month F/U Procedure(s): MM tomosynthesis diagnostic BI Accession Number(s): [id number] cc: Juliane Sahni MD Reason For Exam: BILAT BR PAIN EXAMINATION: MM DIAGNOSTIC DIGITAL BREAST TOMOSYNTHESIS, BILATERAL Bilateral Limited ultrasound. CLINICAL INFORMATION: Bilateral breast pain and yellow nipple discharge. COMPARISON: Mammography: Comparison is made with relevant prior exams. TECHNIQUE: Digital breast mammography with tomosynthesis is performed in both the craniocaudal and mediolateral oblique views along with computer-aided detection (CAD). FINDINGS: There are scattered areas of fibroglandular density. Left: [place]field marker in the upper outer breast middle depth without underlying abnormal finding at site of patient's pain. No suspicious calcifications masses or other abnormal findings. Targeted color Doppler ultrasound demonstrates a hypoechoic simple cyst at 3:00 1 cm from nipple measuring 13 x 6 x 6 mm. At 3:00 2 cm from the nipple there is a minimally complicated cyst measuring 6 x 5 x 5 mm. At 12:00 1 cm from nipple there is a solid mass versus complicated cyst measuring 10 x 13 x 5 mm. 6 month follow-up ultrasound is recommended. Right: [place]field marker in the upper outer breast posterior depth and central inner breast anterior to middle depth at site of patient's pain without underlying abnormal finding. No suspicious calcifications masses or other abnormal findings. Targeted color Doppler ultrasound scanning from 10-2 o'clock and in the areas of patient's pain upper outer and central inner breast demonstrates normal fibroglandular breast tissue. Results are provided to the patient at time of visit by the technologist. MM/MM tomosynthesis diagnostic BI IMPRESSION: Right: No mammographic or sonographic abnormal finding to account for the patient's yellow nipple discharge and 2 areas of patient's pain. Recommend clinical evaluation and follow-up. Left: 1. No mammographic or sonographic abnormal finding to account for the patient's yellow nipple discharge. Recommend clinical evaluation follow-up. 2. No mammographic or sonographic abnormal finding to account for the patient's upper outer breast pain. Recommend clinical evaluation follow-up. 3. Solid mass versus complicated cyst at 12:00 1 cm from the nipple. Recommend 6 month follow-up ultrasound for further evaluation of stability. 4. Minimally complicated cysts at 3:00. Benign. ASSESSMENT: BI-RADS Category 3: Probably benign RECOMMENDATION: 6 Month F/U This patient's information was entered into a reminder system with a target due date for their next mammogram. Electronically signed by: Ileana Mccormick DO 04/16/2025 03:15 PM EDT RP Dictated By: Ileana Mccormick DO Signed By: <Electronically signed by Ileana Mccormick DO in OV> 04/16/25 1515 DD/ 1345 TD/TT: 04/16/25 1410 Outreach Consultant: Procedure Note Donotuseinterpreter, Image - 04/16/2025 [facility] [address] [place] [address] Mammography Report Signed Patient: Leslie Flood#: [id number] 37 : 1955cct:[id number] Age/Sex: 69 / FADM Date: 04/16/25 Loc: HO.MAMMO Attending Dr: Juliane Kiser MD Ordering Physician: Juliane Sahni MDResults: 3Probably Benign Date of Service: 04/16/25Follow Up: 6 Month F/U Procedure(s): MM tomosynthesis diagnostic BI Accession Number(s): [id number] cc: Juliane Sahni MD Reason For Exam: BILAT BR PAIN EXAMINATION: MM DIAGNOSTIC DIGITAL BREAST TOMOSYNTHESIS, BILATERAL Bilateral Limited ultrasound. CLINICAL INFORMATION: Bilateral breast pain and yellow nipple discharge. COMPARISON: Mammography: Comparison is made with relevant prior exams. TECHNIQUE: Digital breast mammography with tomosynthesis is performed in both the craniocaudal and mediolateral oblique views along with computer-aided detection (CAD). FINDINGS: There are scattered areas of fibroglandular density. Left: Marshfield marker in the upper outer breast middle depth without underlying abnormal finding at site of patient's pain. No suspicious calcifications masses or other abnormal findings. Targeted color Doppler ultrasound demonstrates a hypoechoic simple cyst at 3:00 1 cm from nipple measuring 13 x 6 x 6 mm. At 3:00 2 cm from the nipple there is a minimally complicated cyst measuring 6 x 5 x 5 mm. At 12:00 1 cm from nipple there is a solid mass versus complicated cyst measuring 10 x 13 x 5 mm. 6 month follow-up ultrasound is recommended. Right: [place] marker in the upper outer breast posterior depth and central inner breast anterior to middle depth at site of patient's pain without underlying abnormal finding. No suspicious calcifications masses or other abnormal findings. Targeted color Doppler ultrasound scanning from 10-2 o'clock and in the areas of patient's pain upper outer and central inner breast demonstrates normal fibroglandular breast tissue. Results are provided to the patient at time of visit by the technologist. MM/MM tomosynthesis diagnostic BI IMPRESSION: Right: No mammographic or sonographic abnormal finding to account for the patient's yellow nipple discharge and 2 areas of patient's pain. Recommend clinical evaluation and follow-up. Left: 1. No mammographic or sonographic abnormal finding to account for the patient's yellow nipple discharge. Recommend clinical evaluation follow-up. 2. No mammographic or sonographic abnormal finding to account for the patient's upper outer breast pain. Recommend clinical evaluation follow-up. 3. Solid mass versus complicated cyst at 12:00 1 cm from the nipple. Recommend 6 month follow-up ultrasound for further evaluation of stability. 4. Minimally complicated cysts at 3:00. Benign. ASSESSMENT: BI-RADS Category 3: Probably benign RECOMMENDATION: 6 Month F/U This patient's information was entered into a reminder system with a target due date for their next mammogram. Electronically signed by: Ileana Mccormick DO 04/16/2025 03:15 PM EDT Dictated By: Ileana Mccormick DO Signed By: <Electronically signed by Ileana Mccormick DO in OV> 04/16/25 1515 DD/ 1345 TD/TT: 04/16/25 1410 Outreach Consultant: us Juliane Kiser MD IMG BI PROCEDURES Saeid calderon Result - Final * (ABNORMAL) Hemoglobin A1c (04/09/2025 8:56 AM EDT) Hemoglobin A1c 6.1(H) <6.0 % [facility] Comment:Hemoglobin A1C Refer ence Range Adults: 4.8 - 6.0 % Non diabetic: < 6.0 % Goal: < 7.0 %Additional Action Suggested: > 8.0 %Note: Hemoglobin A1c results are invalid for patients with abnormal amounts of HbF. Blood transfusions may impact the HbA1c concentration in the patient sample. Estimated Average Glucose 128 mg/dL [facility] Comment:eAG = Estimated ave rage glucose which is %A1C expressed asaverage glucose, using the formula of the [id number] Glucose study (ADAG), Diabetes Care, Vol.31,#8,Feb. 2007 Blood Venous blood specimen / Unknown 04/09/2025 8:56 AM EDT 04/09/2025 11:11 AM EDT us Susan Wayne MD LAB BLOOD ORDERABLES Final Result [facility] [address] [place] [phone] * (ABNORMAL) Lipid Panel, Standard (04/09/2025 8:56 AM EDT) Only the most recent of2 resultswithin the time period is included. Triglycerides 131 <150 mg/dL [facility] Comment:Desirable Triglyceri de: less than 150 mg/dLBorderline High Triglyceride 150-199 mg/dLHigh Triglyceride: 200-499 mg/dLVery High Triglyceride: greater than or equal to 5OO mg/dL Cholesterol 204(H) <200 mg/dL [facility] Comment:Desirable Cholestero l: less than 200 mg/dLBorderline High Cholesterol: 200-239 mg/dLHigh Cholesterol: greater than 239 mg/dL LDL Cholesterol Calculated 135(H) <100 mg/dL [facility] Comment:Desirable LDL: less than 100 mg/dLNear Optimal/Above Optimal LDL: 110- 129 mg/dLBorderline High LDL: 130-159 mg/dLHigh LDL: 160-189 mg/dLVery High LDL: greater than or equal to 190 mg/dL HDL Cholesterol 43 >40 mg/dL [facility] Comment:Desirable HDL: great er than 40 mg/dL Note: This HDL assay may give artificially low results in patients with liver disease. Blood Venous blood specimen / Unknown 04/09/2025 8:56 AM EDT 04/09/2025 10:57 AM EDT Susan Wayne MD LAB BLOOD ORDERABLES Final Result Performing Organization Address City/State/[facility] Co de Phone Number [facility] [address] [place] [address] [phone] * XR Knee 4+ Views Left (01/27/2025 10:05 AM EDT) Anatomical Region Laterality Modality Lower Extremities, Knee Left Radiogra phic Imaging 01/27/2025 10:0 5 AM EDT Narrative 01/27/2025 11:46 AM EDT [place] [address] XRay Report Signed Patient: Bassem Flood MR#: [id number] 36 : 1955 Acct:[id number] Age/Sex: 69 / F ADM Date: 01/27/25 Loc: HO.[facility] Attending Dr: Susan Wayne MD Ordering Physician: Juliane Sahni MD Date of Service: 01/27/25 Procedure(s): XR knee LT 4V Accession Number(s): [id number] cc: Juliane Sahni MD; Susan Wayne MD [...] 01/27/25 1143 DD/ 1005 TD/TT: 01/27/25 1020 Outreach Consultant: Procedure Note Donotuseinterpreter, Image - 01/27/[address] [address] XRay Report Signed Patient: Leslie Flood#: [id number] 37 : 1955cct:[id number] Age/Sex: 69 / FADM Date: 01/27/25 Loc: .[facility] Attending Dr: Susan Wayne MD Ordering Physician: Juliane Sahni MD Date of Service: 01/27/25 Procedure(s): XR knee LT 4V Accession Number(s): [id number] cc: Juliane Sahni MD; Susan Wayne MD [...] 01/27/25 1143 DD/ 1005 TD/TT: 01/27/25 1020 Outreach Consultant: Juliane Kiser MD IMG XR PROCEDURES Fin al Result * Vitamin D, 25-Hydroxy, Total, Immunoassay (01/27/2025 8:14 AM EDT) Vitamin D 25-OH Total 92.2 >30 ng/mL [facility] Comment: Health Based Reference Values*< 20 ng/mL Kuoaremrp96-58 ng/mL Insufficient> 30 ng/mL Sufficient*Devon FIGUEROA. N [...] Wayne MD LAB BLOOD ORDERABLES Final Result [facility] [address] [place] [address] [phone] * (ABNORMAL) CBC auto differential (01/27/2025 8:14 AM EDT) White Blood Count 10.0 4.8 - 10.8 X10*3/uL [facility] Red Blood Count 4.75 4.20 - 5.50 X10*6/uL [facility] Hemoglobin 14.0 12.0 - 16.0 g/dl [facility] Hematocrit 42.6 37.0 - 47.0 % [facility] Mean Corpuscular Volume 89.7 80.0 - 98.0 fL [facility] Mean Corpuscular Hemoglobin 29.5 27.0 - 33.0 pg [facility] Mean Corpuscular HGB Conc 32.9 31.0 - 35.0 g/dl [facility] Red Cell Distribution Width 12.2 11.0 - 16.0 % [facility] [facility] Platelet Count 283 160 - 400 X10*3/uL [facility] Mean Platelet Volume 10.3 9.4 - 12.3 fL [facility] Neutrophils Percent Auto 46.1 45 - 73 % [facility] Imm Gran Pct Auto 0.4 0.0 - 0.4 % [facility] Lymphocytes Percent Auto 42.8(H) 20 - 40 % [facility] Monocytes Percent Auto 6.9 2 - 11 % [facility] Eosinophils Percent Auto 3.1 0 - 4 % [facility] Basophils Percent Auto 0.7 0 - 2 % [facility] NRBC Pct Auto 0.0 0.0 - 0.2 /100WBC [facility] Neutrophils Absolute Auto 4.6 2.0 - 8.3 x10*3/uL [facility] Imm Gran Abs Auto 0.04(H) 0.00 - 0.03 X10*3/uL [facility] Lymphocytes Absolute Auto 4.3 1.2 - 4.9 X10*3/uL [facility] Monocytes Absolute Auto 0.7 0.1 - 1.2 X10*3/uL [facility] Eosinophils Absolute Auto 0.3 0.0 - 0.4 X10*3/uL [facility] Basophils Absolute Auto 0.1 0.0 - 0.2 X10*3/uL [facility] NRBC Abs Auto 0.000 0.0 - 0.012 X10*3/uL [facility] Blood Venous blood specimen / Unknown 01/27/2025 8:14 AM EDT 01/27/2025 11:06 AM EDT Susan Wayne MD LAB BLOOD ORDERABLES Final Result [facility] [address] [place] [phone] [phone] * (ABNORMAL) Hepatic Function Panel (01/27/2025 8:14 AM EDT) Bilirubin, Total 0.5 0.0 - 1.0 mg/dL [facility] Bilirubin, Direct 0.2 0.0 - 0.5 mg/dL [facility] Aspartate Amino Transferase 31 5 - 31 U/L [facility] Alanine Aminotransferase 46(H) 0 - 31 U/L [facility] Total Protein 6.9 6.5 - 8.0 g/dL [facility] Albumin Level 4.5 3.5 - 5.0 g/dL [facility] Alkaline Phosphatase 71 39 - 117 U/L [facility] Blood Venous blood specimen / Unknown 01/27/2025 8:14 AM EDT 01/27/2025 11:06 AM EDT Susan Wayne MD LAB BLOOD ORDERABLES Final Result Performing Organization Address [facility] Co de Phone Number [facility] [address] [place] [phone] * (ABNORMAL) Basic Metabolic Panel (01/27/2025 8:14 AM EDT) Pathologist [facility] Sodium 145 135 - 145 mmol/L [facility] Potassium 4.8 3.3 - 5.1 mmol/L [facility] Chloride 108 96 - 108 mmol/L [facility] Carbon Dioxide 29 22 - 29 mmol/L [facility] Anion Gap 13 12 - 20 [facility] Urea Nitrogen (BUN) 21(H) 9 - 16 mg/dL [facility] Creatinine, Serum 0.75 0.5 - 1.4 mg/dL [facility] Estimated Glomerular Filt Rate >60 [facility] Comment:Chronic Kidney Disea se: Estimated GFR < 60 mL/min/1.51s2Kxlpyz Kidney Disease: Estimated GFR < 15 mL/min/1.73m2 Glucose 120(H) 60 - 115 mg/dL [facility] Calcium 9.4 8.4 - 10.2 mg/dL [facility] Blood Venous blood specimen / Unknown 01/27/2025 8:14 AM EDT 01/27/2025 11:06 AM EDT Susan Wayne MD LAB BLOOD ORDERABLES Final Result [facility] [address] [place] [address] [phone] * Hm Colonoscopy (01/13/2013) Colonoscopy Dr. 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
--- OUTSIDE RECORDS SUMMARY | 2025-04-21 14:48 | XMS_ITS | Encounter Summary ---
Author Organization [employer] Address [address] [place] [address] 7[address] [place] [address] Care Team Providers Care Social Sciences Research Scientist Name Role Phone Susan Wayne MD Primary Care Provider [phone] Manjinder Trejo MD Unavailable [phone] Encounter Details Date Type Department Care Team (Latest Contact Info) Description 01/26/[address] [facility] [address] [place] [address] Susan Wayne MD [address] [place] [address] Mixed hypercholesterolemia and hypertriglyceridemia (Primary Dx); Gastroesophageal [...] 25-Hydroxy, Total, Immunoassay (01/27/2025 8:14 AM EDT) [facility] Vitamin D 25-OH Total 92.2 >30 ng/mL [facility] Comment: Health Based Reference Values*< 20 ng/mL Sokkvtzlq56-06 ng/mL Insufficient> 30 ng/mL Sufficient*Devon FIGUEROA. N [...] Wayne MD LAB BLOOD ORDERABLES Final Result [facility] [address] [place] [phone] * (ABNORMAL) CBC auto differential (01/27/2025 8:14 AM EDT) White Blood Count 10.0 4.8 - 10.8 X10*3/uL [facility] Red Blood Count 4.75 4.20 - 5.50 X10*6/uL [facility] Hemoglobin 14.0 12.0 - 16.0 g/dl [facility] Hematocrit 42.6 37.0 - 47.0 % [facility] Mean Corpuscular Volume 89.7 80.0 - 98.0 fL [facility] Mean Corpuscular Hemoglobin 29.5 27.0 - 33.0 pg [facility] Mean Corpuscular HGB Conc 32.9 31.0 - 35.0 g/dl [facility] Red Cell Distribution Width 12.2 11.0 - 16.0 % [facility] Platelet Count 283 160 - 400 X10*3/uL [facility] Mean Platelet Volume 10.3 9.4 - 12.3 fL [facility] Neutrophils Percent Auto 46.1 45 - 73 % [facility] Imm Gran Pct Auto 0.4 0.0 - 0.4 % [facility] Lymphocytes Percent Auto 42.8(H) 20 - 40 % [facility] Monocytes Percent Auto 6.9 2 - 11 % [facility] Eosinophils Percent Auto 3.1 0 - 4 % [facility] Basophils Percent Auto 0.7 0 - 2 % [facility] NRBC Pct Auto 0.0 0.0 - 0.2 /100WBC [facility] Neutrophils Absolute Auto 4.6 2.0 - 8.3 x10*3/uL [facility] Imm Gran Abs Auto 0.04(H) 0.00 - 0.03 X10*3/uL [facility] Lymphocytes Absolute Auto 4.3 1.2 - 4.9 X10*3/uL [facility] Monocytes Absolute Auto 0.7 0.1 - 1.2 X10*3/uL [facility] Eosinophils Absolute Auto 0.3 0.0 - 0.4 X10*3/uL [facility] Basophils Absolute Auto 0.1 0.0 - 0.2 X10*3/uL [facility] NRBC Abs Auto 0.000 0.0 - 0.012 X10*3/uL [facility] Blood Venous blood specimen / Unknown 01/27/2025 8:14 AM EDT 01/27/2025 11:06 AM EDT Susan Wayne MD LAB BLOOD ORDERABLES Final Result Performing Organization Address City/[facility]/ZIP Co de Phone Number [facility] [address] [place] [address] [phone] * (ABNORMAL) Basic Metabolic Panel (01/27/2025 8:14 AM EDT) Sodium 145 135 - 145 mmol/L [facility] Potassium 4.8 3.3 - 5.1 mmol/L [facility] Chloride 108 96 - 108 mmol/L [facility] Carbon Dioxide 29 22 - 29 mmol/L [facility] Anion Gap 13 12 - 20 [facility] Urea Nitrogen (BUN) 21(H) 9 - 16 mg/dL [facility] Creatinine, Serum 0.75 0.5 - 1.4 mg/dL [facility] Estimated Glomerular Filt Rate >60 [facility] Comment:Chronic Kidney Disea se: Estimated GFR < 60 mL/min/1.41h3Tywtcz Kidney Disease: Estimated GFR < 15 mL/min/1.73m2 Glucose 120(H) 60 - 115 mg/dL [facility] Calcium 9.4 8.4 - 10.2 mg/dL [facility] Blood Venous blood specimen / Unknown 01/27/2025 8:14 AM EDT 01/27/2025 11:06 AM EDT Susan Wayne MD LAB BLOOD ORDERABLES Final Result [facility] [address] [place] [phone] [phone] * (ABNORMAL) Lipid Panel, Standard (01/27/2025 8:14 AM EDT) Triglycerides 147 <150 mg/dL [facility] Comment:Desirable Triglyceri de: less than 150 mg/dLBorderline High Triglyceride 150-199 mg/dLHigh Triglyceride: 200-499 mg/dLVery High Triglyceride: greater than or equal to 5OO mg/dL Cholesterol 202(H) <200 mg/dL [facility] Comment:Desirable Cholestero l: less than 200 mg/dLBorderline High Cholesterol: 200-239 mg/dLHigh Cholesterol: greater than 239 mg/dL LDL Cholesterol Calculated 126(H) <100 mg/dL [facility] Comment:Desirable LDL: less than 100 mg/dLNear Optimal/Above Optimal LDL: 110- 129 mg/dLBorderline High LDL: 130-159 mg/dLHigh LDL: 160-189 mg/dLVery High LDL: greater than or equal to 190 mg/dL HDL Cholesterol 47 >40 mg/dL [facility] Comment:Desirable HDL: great er than 40 mg/dL Note: This HDL assay may give artificially low results in patients with liver disease. Blood Venous blood specimen / Unknown 01/27/2025 8:14 AM EDT 01/27/2025 11:06 AM EDT Susan Wayne MD LAB BLOOD ORDERABLES Final Result [facility] [address] [place] [phone] * (ABNORMAL) Hepatic Function Panel (01/27/2025 8:14 AM EDT) Bilirubin, Total 0.5 0.0 - 1.0 mg/dL [facility] Bilirubin, Direct 0.2 0.0 - 0.5 mg/dL [facility] Aspartate Amino Transferase 31 5 - 31 U/L [facility] Alanine Aminotransferase 46(H) 0 - 31 U/L [facility] Total Protein 6.9 6.5 - 8.0 g/dL [facility] Albumin Level 4.5 3.5 - 5.0 g/dL [facility] Alkaline Phosphatase 71 39 - 117 U/L [facility] Blood Venous blood specimen / Unknown 01/27/2025 8:14 AM EDT 01/27/2025 11:06 AM EDT Susan Wayne MD LAB BLOOD ORDERABLES Final Result [facility] [address] [place] [phone] [phone] documented in this encounter Visit Diagnoses Diagnosis Mixed hypercholesterolemia and hypertriglyceridemia- Primary Mixed hyperlipidemia Gastroesophageal reflux disease, unspecified whether esophagitis present Vitamin D deficiency Screening for diabetes mellitus documented in this encounter Care Teams Social Sciences Research Scientist Relationship Specialty Start Date End Date Susan Wayne MD [address] [place] [phone] PCP - General Family Medicine 01/26/25 Manjinder Trejo MD [address] [place] [address] [address] [place] [address] Ophthalmology 04/15/25 documented as of this encounter
--- OUTSIDE RECORDS SUMMARY | 2025-04-21 14:48 | XMS_ITS | Patient Health Record ---
Author Organization [facility] Address [address] [place] [phone] Care Team Providers Care Drop Forger Name Role Phone Rolando Flores [phone] Allergies No Known Allergies Reason For Referral [...] Status W/U Status Risk Notes Problem Prediabetes (811571455) Prediabetes (R73.03) Active confirmed Problem Lumbar radiculopathy (895460513) Lumbar radiculopathy (M54.16) Active confirmed Problem Serum ferritin high (344767958) Elevated ferritin (R79.89) Active confirmed Problem Sinusitis (64588163) Sinusitis (J32.9) Active confirmed Problem Arthralgia (82245250) Arthralgia (M25.50) Active confirmed Problem Herpes genitalis (29654585) Herpes genitalis (A60.00) Active confirmed Plan Of Treatment Pending Test Test Name Order Date MG Diagnostic Mammogram BILATERAL (1950) 07/23/2023 US Breast Complete BILATERAL (1542) 02/2024 Future Test Test Name Order Date Hemoglobin [id number] 02/13/2024 Insulin-[id number] 02/13/2024 Ferritin, Serum-671011 02/13/2024 Lipid Panel-[id number] 02/13/2024 CMP14+eGFR (606534) 02/13/2024 CBC 02/13/2024 Insurance Providers Payer Name Payer Address Payer Phone Subscriber Number Group Number Insured Name Patient Relationship to Insured Coverage Start Date Coverage End Date [facility] MED[facility] ADV (PPO) [address] [address] [place] [address] [id number] SANCHEZ OLIVER Self - patient is the insured Medications Administered Medication Instructions Date of Administration Dosage Notes Ketorolac Tromethamine 05/28/2023 30 mg DEPO-Medrol 05/28/2023 40 mg Medical (General) History Medical History History ICD Code arthritis herpes hemorrhoids pre diabetes Surgical History Surgery Date(Month/Year) Hand surgery cholecystectomy hysterectomy
--- OUTSIDE RECORDS SUMMARY | 2025-04-21 14:48 | XMS_ITS | Encounter Summary ---
Author Organization [employer] Address [address] [facility] [address]t [place] [address] Care Team Providers Care Advertising Account Representative Name Role Phone Susan Wayne MD Primary Care Provider [phone]- [phone] Manjinder Trejo MD Unavailable [phone] Encounter Details Date Type Department Care Team (Latest Contact Info) Description 04/21/2025 Travel Social History Tobacco Use Types Packs/Day [...] documented as of this encounter Care Teams Advertising Account Representative Relationship Specialty Start Date End Date Susan Wayne MD [address] [place] [address] PCP - General Family Medicine 01/26/25 Manjinder Trejo MD [address] [place] [address] [address] [place] [address] Ophthalmology 04/15/25 documented as of this encounter
--- OUTSIDE RECORDS SUMMARY | 2025-04-21 14:48 | XMS_ITS | Encounter Summary ---
Author Organization [facility] Address [address] [place] [address] 7 [place] [address] Care Team Providers Care Order Entry Specialist Name Role Phone Susan Wayne MD Primary Care Provider [phone] Susan Wayne MD Primary Care Provider [phone]- [phone] Manjinder Trejo MD Unavailable [phone] Encounter Details Date Type Department Care Team (Late st Contact Info) Description 08/22/2023 Orders Only [facility] [address] [place], [place] [phone] Susan Wayne MD [address] [place], [place] [phone] Social History Tobacco Use Types Packs/Day Years [...] on filedocumented in this encounter Care Teams Order Entry Specialist Relationship Specialty Start Date End Date Susan Wayne MD [address] [place], [place] [phone] PCP - General Family Medicine 07/16/18 04/13/24 Susan Wayne MD [address] [place] [address] PCP - General Family Medicine 01/26/25 Manjinder Trejo MD [address] [place] [address] [address] [place] [address] Ophthalmology 04/15/25 documented as of this encounter
--- OUTSIDE RECORDS SUMMARY | 2025-04-21 14:49 | XMS_ITS | Patient Health Record ---
Author Organization [facility] Address [address] [place] [address] Care Team Providers Care Transportation Driver Name Role Phone Susan Wayne MD Primary Care Provider Sondra Corky Meier Jr Unavailable [phone] Reason For Referral No Information Medications Medication SIG (Take, Route, Fr equency, Duration) Notes Start Date End Date Status MoviPrep 100 GM as directed before c olonoscopy Orally for 1 dose 09/20/2012 07/16/2024 Active Calcium Active Problems Problem Type SNOMED Code ICD Code Onset Dates Problem Status W/U Status Risk Notes Problem Irritable bowel syndrome (07042661) Irritable bowel syndrome (564.1) Active confirmed Problem Colon cancer screening (061794507) Colon cancer screening (V76.51) Active confirmed Plan Of Treatment Future Test Test Name Order Date COLONOSCOPY 09/20/2012 Insurance Providers Payer Name Payer Address Payer Phone Subscriber Number Group Number Insured Name Patient Relationship to Insured Coverage Start Date Coverage End Date [facility] [address] [place] [phone] [id number] SANCHEZ OLIVER Self - patient is the insured Medical (General) History Medical History History ICD Code Denies OR,DM,CVA,Lung disease,renal dise ase glaucoma varicose veins in lower extremity allergic rhinitis eczematous dermatitis Surgical History Surgery Date(Month/Year) hysterectomy ? gallbladder hand surgery
[2025-04-22 08:04] LABS: ~HepC Num1 0.13 S/CO (0.00-0.79); ~Hepatitis C Antibody Nonreactive (Nonreactive)
== END 2025-04-21 11:44 | disposition home or self-care (01) ==
LOC: HO.HHCL 11:43
PROVIDERS: PCP Family Medicine; Visit Provider Family Medicine
DX: Z11.59 Encounter for screening for other viral diseases (principal); Z13.29 Encounter for screening for other suspected endocrine disorder; R22.1 Localized swelling, mass and lump, neck
CPT/HCPCS: 36415; 84443; 86803